=== PATIENT | male | born 1940 | race Caucasian/White ===

== ENCOUNTER 2023-08-10 08:30 | Inpatient (IN) | payer OTHER, SELFPAY ==
[2023-08-08] VITALS (13 sets, daily range): BP systolic 139–182; BP diastolic 65–93; PULSE 75–85; BMI 28.4
[2023-08-08 08:53] LABS: % Basophils 0.9 % (0-2); % Eosinophils 3.7 % (0-6); % Immature Granulocytes 0.8 % (0-0.5); % Lymphocytes 17.9 % (20.5-51.1); % Monocytes 8.9 % (1.7-9.3); % Neutrophils 67.8 % (42.2-75.2); Absolute Basophils 0.1 10^3/uL (0-0.2); Absolute Eosinophils 0.4 10^3/uL (0-0.7); Absolute Immature Granulocytes 0.1 10^3/uL (0-0.05); Absolute Lymphocytes 1.8 10^3/uL (1.2-3.4); Absolute Monocytes 0.9 10^3/uL (0.1-0.6); Absolute Neutrophils 6.7 10^3/uL (1.4-6.5); Hematocrit 41.3 % (39.0-52.0); Hemoglobin 14.1 g/dL (13.0-18.0); Mean Corp Hgb Conc. 34.1 g/dL (33.0-37.0); Mean Corpuscular Hgb 29.8 pg (27.0-31.0); Mean Corpuscular Volume 87.3 fL (80.0-94.0); Mean Platelet Volume 11.1 fL (7.4-10.4); Nucleated Red Blood Cells % 0 % (-); Platelet Count 209 10^3/uL (130-400); Red Blood Cell Count 4.73 10^6/uL (4.70-6.10); Red Cell Dist. Width 12.8 % (11.5-14.5); White Blood Cell Count 9.9 10^3/uL (4.8-10.8)
[2023-08-08 09:01] LABS: PT 15.1 Sec (11.4-14.6)
--- NOTE | 2023-08-08 09:05 | ED.GENMED ---
History of Present Illness
General
Chief Complaint: Dizziness
Source: patient
Exam Limitations: none
Time Seen by Provider: 08/08/23 09:04
Nursing documentation reviewed up to this point in time: agreed with
Travel History
Have you had any contact with someone who has COVID-19?: No
Do you have any symptoms of coronavirus? Fever > 100 degrees, chills, cough, shortness of breath, sore throat, loss of taste or smell, muscle aches, or headache?: No
History of Present Illness
History of Present Illness:
Patient with history of hypertension, hypercholesterolemia, diabetes, and dementia, presents to ED secondary to inability to move left arm and leg. Per , who sleeps in a separate room, when she came downstairs, she found the patient sitting in
a chair. However, patient appeared to be 'limp' on his left side. When she tried to stand up, to bring him to ED, patient was unable to stand up due to weakness. 911 was called at that time. Upon arrival, patient has no complaints and states
that he can open and close his left hand, as well as raise his left arm, which he could not do this morning. Patient reports falling down the steps as he was coming down, but denies any injuries from the fall. Denies headache. Denies blurred
vision. Denies dizziness. Denies difficulty with speech. At baseline, patient is independent and ambulates without assistance. Denies previous history of similar symptoms. Denies recent illness. Denies recent change in medications or diet.
Past History
Past History
ED Past Medical History: Asthma, HTN, Hypercholesterolemia, NIDDM and Other (Dementia)
ED Past Surgical History: Cholecystectomy and Orthopedic (Right shoulder surgery)
Social History
Tobacco: Former smoker
Alcohol: Occasional
Personal:
Living: with family
Employment: Retired
Review of Systems
Review of Systems
Allergies reviewed?: Yes
All Other Systems: ROS reviewed and negative except as documented in HPI and ROS
Constitutional: Reports no symptoms
EENT: Reports no symptoms
Respiratory: Reports no symptoms
Cardiac: Reports no symptoms
ABD/GI: Reports no symptoms
: Reports no symptoms
Musculoskeletal: Reports no symptoms
Skin: Reports no symptoms
Neurological: Reports weakness; Denies headache or numbness
Phy Exam
Physical Exam
Physical Exam:
Physical Exam
General: no apparent distress, not acutely ill. afebrile
Head: nc/at. eomi
Neck: supple. no meningeal signs.
Heart: s1/s2 regular rate and rhythm, no murmur. equal radial pulses.
Lungs: no acute respiratory distress. clear bilaterally
Abdomen: normal bowel sounds. not tender.
Neuro: alert and oriented x 2. no focal neurological deficits. normal speech.
Skin: no rash
Psychiatric: well kept. interactive and cooperative
Extremities: no edema. no calf tenderness.
Course
Orders/Labs/Results
Orders:
Orders
08/08/23 08:36
EKG [Electrocardiogram (*1)] Urgent
Reason for Study: Vertigo / Dizzy
CT Head W/o Iv Contrast Urgent
Comment:
Reason For Exam: dizziness
EKG- Treatment ONCE
08/08/23 08:42
Complete Blood Count/With Diff Urgent
Comprehensive Metabolic Panel Urgent
Glycohemoglobin (HgbA1c) Urgent
Prothrombin Time Urgent
Troponin I Urgent
08/08/23 09:26
Orthostatic VS- Treatment ONCE
08/08/23 09:33
0.9% Sodium Chloride 500 ml [Nss] 500 ml IV BOLUS
08/08/23 09:47
Aspirin 325 mg PO NOW STA
Clopidogrel Bisulfate [Plavix] 300 mg PO NOW STA
08/08/23 11:32
Admit/Transfer Patient As Directed
Co-Sign Provider:
Level of Care: Observation services
Assign to:: Telemetry
Physician / Group: hosp
Diagnosis: TIA/CVA
Reason for Telemetry: CVA/TIA
Date to Stop Telemetry: 08/11/23
Time to Stop Telemetry: 11:00
08/08/23 11:34
Code Status As Directed
Resuscitation Status: Do not resuscitate
Reached after discussion with pt or family/Healthcare POA: Yes
08/08/23 11:35
DNR Bracelet Application ONCE
08/08/23 13:01
Acetaminophen [Tylenol/Feverall] 650 mg RECTAL Q4HPRN PRN
Acetaminophen [Tylenol] 650 mg PO Q4HPRN PRN
Acetaminophen [Tylenol] 650 mg PO Q4HPRN PRN
08/08/23 13:01
Case Management Consult ONCE
Case Management Consult: Discharge Planning
Comment: stroke/tia
DIETARY CONSULT Routine
Reason for Consult: stroke/TIA
NEUROLOGY CONSULT Urgent
Consulting Provider: Sharlene Gutierrez
Was physician already notified: Yes
Spot Cleaner Urgent
Activity As Directed
Activity Level: With Assistance
NIH Stroke Scale As Directed
Directions: Per protocol
Comment: every shift and with any change in condition or mental status
Neurological Checks As Directed
Frequency: q4h
Additional Instructions:: q4h x 24h upon admission to the floor, then qshift & with any change in condition
and mental status
Patient Education As Directed
Type: Stroke education packet
Comment: provide to patient and family
Pneumatic Compression Sleeves As Directed
Type: Knee high
Swallow Screening CVA/TIA ONLY As Directed
Comment: NPO until swallowing screening completed
If patient FAILS swallow screening:: NPO, Speech Therapy consult, Aspiration Precautions
If patient PASSES swallow screening, diet:: Cholesterol Lowering
Above diet order entered?: Yes- passed screening
Vital Signs As Directed
Frequency: Per unit guidelines
Ot Eval And Treat Routine
Speech Therapy Eval & Treat Routine
DX Deep Vein Thrombosis Video Routine
08/08/23 18:00
Enoxaparin Sodium [Lovenox] 40 mg SC QPM
08/08/23 22:00
Atorvastatin [Lipitor] 40 mg PO HS
08/09/23 05:37
Basic Metabolic Panel IN AM
Cardiovascular Evaluation IN AM
Complete Blood Count/No Diff IN AM
08/09/23 08:00
Amlodipine [Norvasc] 5 mg PO DAILY
Aspirin Low Dose EC [Aspir Low (Enteric Coated)] 81 mg PO DAILY
Clopidogrel Bisulfate [Plavix] 75 mg PO DAILY
Glimepiride [Amaryl] 1 mg PO DAILY
Losartan [Cozaar] 100 mg PO DAILY
Meloxicam [Mobic] 15 mg PO DAILY
08/11/23 11:00
DC Protocol for Telemetry ONCE
09/07/23 08:00
Cyanocobalamin 1,000 mcg IM MONTHLY
Abnormal Lab Results
08/08/23
08:42
MPV 11.1 H fL
(7.4-10.4)
Abs Immat Gran (auto) 0.1 H 10^3/uL
(0-0.05)
Absolute Neuts (auto) 6.7 H 10^3/uL
(1.4-6.5)
Absolute Monos (auto) 0.9 H 10^3/uL
(0.1-0.6)
Immature Gran % 0.8 H %
(0-0.5)
Lymphocytes % 17.9 L %
(20.5-51.1)
PT 15.1 H Sec
(11.4-14.6)
BUN 27 H mg/dl
(9-20)
Glucose 138 H mg/dl
(70-99)
08/08/23 08:42
08/08/23 08:42
Vital Signs
Initial and Last Documented VS:
Initial Vital Signs
Pulse Resp
81 24
08/08/23 08:38 08/08/23 08:38
Last Documented Vital Signs
Temp Pulse Resp BP Pulse Ox
97.8 F 105 19 170/122 96
08/09/23 03:55 08/09/23 03:55 08/09/23 03:55 08/09/23 03:55 08/09/23 03:55
MDM/Problems Addressed
MDM/Problems Addressed:
CT head: NAD.
Discussed with (neurology) who recommends further evaluation and treatment, for potential TIA vs CVA. Recommends starting asa/plavix, along with additional studies, ie. MRI
*EKG
Interpreted by ED Provider?: Yes
EKG Intrepretation Date: 08/08/23
Interpretation: normal
Heart Rate: 78
Rate: normal
Rhythm: sinus
[place]: normal axis
Interval: normal interval
*Critical Care Note
Total Time (30-74mins, 75-104mins- exclusive of procedures): Not Applicable
ED Attending Note
-
Portions of this chart may have been created with voice recognition software.� Occasional wrong word or��sound alike� substitutions may have occurred due to the inherent limitations of voice recognition software.
Discharge Plan
Departure
Patient Disposition: Admit
Date of Disposition: 08/08/23
Time of Disposition: 09:46
Admit to: Telemetry
Presentation/result/management discussed w/ accepting MD/DO: Hospitalist
Discharge Problem:
Brain TIA, Dementia
Interventions
Interventions:
*Risk Screen - Suicide Last Done: 08/08/23 12:41
*General Assessment Last Done: 08/08/23 12:41
*Neglect/Abuse Screening Last Done: 08/08/23 12:41
ED- Fall Risk Assessment Last Done: 08/08/23 12:46
*ED COVID-19 Vaccine History Last Done: 08/08/23 12:41
*Nursing Disposition Last Done: 08/08/23 12:53
ED- Neurological Assessment Last Done: 08/08/23 12:45
ED- Cardiac Assessment Last Done: 08/08/23 12:53
ED Swallowing Screen Last Done: 08/08/23 12:45
Discharge Date and Time
Discharge Date/Time: 08/08/23 13:00
[2023-08-08 09:10] LABS: ALT (SGPT) 14 U/L (0-50); AST (SGOT) 20 U/L (17-59); Albumin 4.2 g/dl (3.5-5.0); Alkaline Phosphatase 78 U/L (38-126); Blood Urea Nitrogen 27 mg/dl (9-20); Calcium 9.9 mg/dl (8.4-10.2); Carbon Dioxide 23 mmol/L (22-30); Chloride 107 mmol/L (98-107); Glucose 138 mg/dl (70-99); Sodium 136 mmol/L (135-145); Total Bilirubin 0.4 mg/dl (0.2-1.3); eGFR 54.51
[2023-08-08] MEDS: NSS 500 IV (09:36)
[2023-08-08 09:42] LABS: Troponin I < 0.012 ng/ml
[2023-08-08] MEDS: PLAVIX 300 MG PO (10:23)
[2023-08-08] MEDS: ASPIRIN 325 MG PO (10:23)
--- NOTE | 2023-08-08 11:43 | HPS.HSE ---
Family Physician
-
Family Physician: Elijah Zavala
Chief Complaint
-
Left-sided weakness inability to ambulate
History of Present Illness
Patient with history of hypertension, hypercholesterolemia, diabetes, and dementia, presents to ED secondary to inability to move left arm and leg. Per , who sleeps in a separate room, when she came downstairs, she found the patient sitting in
a chair. However, patient appeared to be 'limp' on his left side. When she tried to stand up, to bring him to ED, patient was unable to stand up due to weakness. 911 was called at that time. Upon arrival, patient has no complaints and states
that he can open and close his left hand, as well as raise his left arm, which he could not do this morning.
Patient reports falling down the steps as he was coming down, but denies any injuries from the fall. Denies headache. Denies blurred vision. Denies dizziness. Denies difficulty with speech. At baseline, patient is independent and ambulates
without assistance. Denies previous history of similar symptoms. Denies recent illness. Denies recent change in medications or diet. He is not at all clear whether he in fact did not fall down stairs as his disputes this as there is no
evidence of that at the home. He does have a history of underlying dementia for years that is been slowly worsening he is not on medication for that. On presentation there is no signs of trauma and CT scan did not show any signs of bleed. Of note
the patient and he is a diabetic checked his blood sugar at home at the time of amp shortly before paramedics arrived and blood sugar was 132.
Medical History
Past Medical History
Past Medical History: Reports Asthma, Dementia, HTN, Hypercholesterolemia and NIDDM
Additional Past Medical History:
Progressing dementia
Past Surgical History: Reports None
Social History
Unable to obtain full social history at this time due to: Dementia
Tobacco: Former Smoker
Alcohol: Occasional
Drug: None
Personal:
Living: With Family
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
Family History
Family History: Not pertinent
Allergies / Home Medications
Allergies reflects when Allergies were last updated in [facility].
Home Medications with original date entered in [facility]
Allergy/Medication List:
Allergies
Allergy/AdvReac Type Severity Reaction Status Date / Time
seasonal allergies Allergy nasal Uncoded 03/27/23 04:37
symtpoms
Home Medications
aspirin 81 mg tablet,delayed release 81 mg PO DAILY 10/22/09
atorvastatin 40 mg tablet 40 mg PO HS 10/22/09
glimepiride 1 mg tablet 1 mg PO DAILY 07/04/22
losartan 50 mg tablet 100 mg PO DAILY 07/04/22
metformin 500 mg tablet,extended release 24 hr 2,000 mg PO DAILY 07/04/22
amlodipine 5 mg tablet 5 mg PO DAILY #30 tabs 07/08/22
acetaminophen 325 mg tablet (Tylenol) 650 mg PO Q4HPRN PRN mild pain 07/09/22
cyanocobalamin (vitamin B-12) 1,000 mcg/mL injection solution 1,000 mcg IM MONTHLY 07/09/22
meloxicam 15 mg tablet 15 mg PO DAILY 08/08/23
Review of Systems
-
Unable to obtain full review of systems at this time due to: Dementia (Has had short-term memory loss for some time presently seems to be at his baseline according to his spouse)
EENT: Reports No Symptoms
Respiratory: Reports No Symptoms
Cardiac: Reports No Symptoms
Abdomen/GI: Reports No Symptoms
Musculoskeletal: Reports No Symptoms
Skin: Reports No Symptoms
Neurological: Reports Weakness (Had describes short-term flaccidity involving his left side no speech affectation was ever noted.)
Psych: Reports Calm
Physical Exam
Vital Signs
Vital Signs
Temp Pulse Resp BP Pulse Ox
97.7 F 78 21 139/83 95
08/08/23 08:40 08/08/23 09:45 08/08/23 09:45 08/08/23 09:29 08/08/23 09:45
Physical Exam
General: Well Developed
Respiratory: Clear
Cardiac: S1/S2
GI: Soft
Rectal: Brown
Musculoskeletal: No Cyanosis, No Edema and Normal Gait & Station (Did not test gait)
Skin: Warm
Neuro: Awake, Alert, Oriented (He has limited orientation in regards to time elements of this morning and events leading up to his arrival here), No Motor Deficits and Nonfocal/grossly intact
Hematologic/Lymphatic: Lymphadenopathy
Psych: Calm
Laboratory Results
-
08/08/23 08:42
08/08/23 08:42
Laboratory Results
PT 15.1 Sec (11.4-14.6) H 08/08/23 08:42
INR 1.20 08/08/23 08:42
Total Bilirubin 0.4 mg/dl (0.2-1.3) 08/08/23 08:42
AST 20 U/L (17-59) 08/08/23 08:42
ALT 14 U/L (0-50) 08/08/23 08:42
Alkaline Phosphatase 78 U/L (38-126) 08/08/23 08:42
Troponin I < 0.012 ng/ml 08/08/23 08:42
Data Reviewed
-
Critical Care Time (in minutes): 56
CT Scan: Report Reviewed by me (There was significant white matter ischemic disease and atrophy noted), Discussed with Physician, Discussed with Patient and Discussed with Family
Lab Data: Labs Reviewed by me
Impression/Plan
-
IMPRESSION:
Patient with history of hypertension, hypercholesterolemia, diabetes, and dementia, presents to ED secondary to inability to move left arm and leg. Per , who sleeps in a separate room, when she came downstairs, she found the patient sitting in
a chair. However, patient appeared to be 'limp' on his left side. When she tried to stand up, to bring him to ED, patient was unable to stand up due to weakness. 911 was called at that time. Upon arrival, patient has no complaints and states
that he can open and close his left hand, as well as raise his left arm, which he could not do this morning.
Patient reports falling down the steps as he was coming down, but denies any injuries from the fall. Denies headache. Denies blurred vision. Denies dizziness. Denies difficulty with speech. At baseline, patient is independent and ambulates
without assistance. Denies previous history of similar symptoms. Denies recent illness. Denies recent change in medications or diet. He is not at all clear whether he in fact did not fall down stairs as his disputes this as there is no
evidence of that at the home. He does have a history of underlying dementia for years that is been slowly worsening he is not on medication for that. On presentation there is no signs of trauma and CT scan did not show any signs of bleed. Of note
the patient and he is a diabetic checked his blood sugar at home at the time of amp shortly before paramedics arrived and blood sugar was 132.
CVA/TIA
-Symptoms and signs transient no more than 1 to 1-1/2 hours
-Manifested as left side weakness and could not ambulate or stand upright/no apparent speech affect
-No present residual focal deficits on my exam
-CT scan of the brain unremarkable except for white matter ischemic disease known history of dementia
-Received dual antiplatelet therapy with clopidogrel 300/aspirin 325
-Continue on dual antiplatelet therapy
-Await MRI of the brain
-Non-tPA stroke protocol/did not meet criteria for thrombolysis due to 0 NIH score
Neurology consultation
Type 2 diabetes mellitus
-Continue glimepiride
-Hold metformin
-Sliding scale coverage low-dose
Essential hypertension by history
-Continue amlodipine, losartan
-Avoid hypotension in the next 24 hours
Dementia(vascular)
-That has been waxing and waning for years but slowly progressing
-Cognition according to spouse is presently at baseline
Placed on observation status
DVT prophylaxis with Lovenox and SCDs
DNR/DNI/substantiated at bedside by spouse
[2023-08-08] MEDS: LOVENOX 40 MG SC (17:13)
[2023-08-08] MEDS: LIPITOR 40 MG PO (22:01)
[2023-08-09] MEDS: APRESOLINE 5 MG IV (00:54)
[2023-08-09 03:55] VITALS: BP 170/122
[2023-08-09 05:10] VITALS: BMI 27.6
[2023-08-09 06:20] LABS: Hematocrit 40.7 % (39.0-52.0); Hemoglobin 14.3 g/dL (13.0-18.0); Mean Corp Hgb Conc. 35.1 g/dL (33.0-37.0); Mean Corpuscular Volume 85.5 fL (80.0-94.0); Mean Platelet Volume 11.7 fL (7.4-10.4); Platelet Count 223 10^3/uL (130-400); Red Blood Cell Count 4.76 10^6/uL (4.70-6.10); Red Cell Dist. Width 12.6 % (11.5-14.5); White Blood Cell Count 10.7 10^3/uL (4.8-10.8)
[2023-08-09 06:44] LABS: Blood Urea Nitrogen 21 mg/dl (9-20); Calcium 10.1 mg/dl (8.4-10.2); Carbon Dioxide 19 mmol/L (22-30); Chloride 106 mmol/L (98-107); Estimated Creatinine Clearance 56 ml/min; Glucose 128 mg/dl (70-99); HDL Cholesterol 33 mg/dl; LDL Cholesterol, Calculated 140 mg/dl; Potassium 4.4 mmol/L (3.5-5.1); Sodium 134 mmol/L (135-145); Total Cholesterol 216 mg/dl (50-199); Triglyceride 216 mg/dl (10-149); Very Low Density Lipoprotein 43 mg/dl (0-30); eGFR > 60.00
[2023-08-09 07:00] VITALS: BP 158/95
--- NOTE | 2023-08-09 09:20 | W.PN.HOSP.TC ---
Today's Communication/Plan
-
Continue neurochecks
Dual antiplatelet therapy
Obtain 2D echocardiogram
PT/OT May need rehab
Assessment / Plan
Assessment / Plan
Patient with history of hypertension, hypercholesterolemia, diabetes, and dementia, presents to ED secondary to inability to move left arm and leg. Per , who sleeps in a separate room, when she came downstairs, she found the patient sitting in
a chair. However, patient appeared to be 'limp' on his left side. When she tried to stand up, to bring him to ED, patient was unable to stand up due to weakness. 911 was called at that time. Upon arrival, patient has no complaints and states
that he can open and close his left hand, as well as raise his left arm, which he could not do this morning.
Patient reports falling down the steps as he was coming down, but denies any injuries from the fall. Denies headache. Denies blurred vision. Denies dizziness. Denies difficulty with speech. At baseline, patient is independent and ambulates
without assistance. Denies previous history of similar symptoms. Denies recent illness. Denies recent change in medications or diet. He is not at all clear whether he in fact did not fall down stairs as his disputes this as there is no
evidence of that at the home. He does have a history of underlying dementia for years that is been slowly worsening he is not on medication for that. On presentation there is no signs of trauma and CT scan did not show any signs of bleed. Of note
the patient and he is a diabetic checked his blood sugar at home at the time of amp shortly before paramedics arrived and blood sugar was 132.
CVA/TIA
-Symptoms and signs transient no more than 1 to 1-1/2 hours
-Manifested as left side weakness and could not ambulate or stand upright/no apparent speech affect
-No present residual focal deficits on my exam
-CT scan of the brain unremarkable except for white matter ischemic disease known history of dementia
-Received dual antiplatelet therapy with clopidogrel 300/aspirin 325
-Continue on dual antiplatelet therapy
-Await MRI of the brain/which initial attempt was unable to be performed due to patient agitation and this is from his baseline dementia
-Was sedated with the lorazepam and MRI in keeping with a right posterior capsule CVA ischemic/
-Non-tPA stroke protocol/did not meet criteria for thrombolysis due to 0 NIH score
Neurology consultation/left arm and left leg drift equals NIH score of 1
-Will need to undergo 2D echocardiogram to further assess
-Will change to inpatient status need for PT/OT
Type 2 diabetes mellitus
-Continue glimepiride
-Hold metformin
-Sliding scale coverage low-dose
Essential hypertension by history
-Continue amlodipine, losartan
-Avoid hypotension in the next 24 hours
Dementia(vascular)
-That has been waxing and waning for years but slowly progressing
-Cognition according to spouse is presently at baseline
Placed on observation status
DVT prophylaxis with Lovenox and SCDs
DNR/DNI/substantiated at bedside by spouse
Anticipated Discharge: Within 24 hours
Subjective/Interval History
-
Date of Service: August 09, 2023
Was agitated and acting out throughout the night and was unable to have MRI performed this morning due to agitation.
Objective Data
-
Labs:
Laboratory Results
08/09/23
05:37
WBC 10.7
Hgb 14.3
Hct 40.7
Plt Count 223
Sodium 134 L
Potassium 4.4
Chloride 106
Carbon Dioxide 19 L
BUN 21 H
Creatinine 1.1
Glucose 128 H
Calcium 10.1
Vital Signs:
Vital Signs
Temp Pulse Resp BP Pulse Ox
97.8 F 96 19 158/95 95
08/09/23 07:00 08/09/23 07:00 08/09/23 07:00 08/09/23 07:00 08/09/23 07:00
I&O
08/08/23 08/09/23 08/10/23
06:59 06:59 06:59
Intake Total 1020 / 1020
Output Total 5 / 5
Balance -5 / -5
Review of Systems
-
Unable to obtain full review of systems at this time due to: Dementia
History Source: Patient and Family
Physical Exam
-
General: No Apparent Distress
Respiratory: Clear to Auscultation
Cardiac: Regular Rhythm
GI: Soft
Neuro: Awake, No Motor Deficits, Nonfocal/Grossly Intact and Central Nerve's Intact; Negative Oriented (Disoriented to time place), No Sensory Deficits or Slurred Speech
Psych: Confused, Agitated, Anxious and Apparent Dementia; Negative Intact Judgement/Insight
Data Reviewed
-
Total Time Spent with Patient (in minutes): 56
Labs: Labs Reviewed by me
[2023-08-09 10:13] LABS: Glycohemoglobin (HgbA1c) 6.4 % (4.0-5.6)
[2023-08-09] MEDS: NORVASC 5 MG PO (10:19)
[2023-08-09] MEDS: COZAAR 100 MG PO (10:19)
[2023-08-09] MEDS: ASPIR LOW (ENTERIC COATED) 81 MG PO (10:19)
[2023-08-09] MEDS: AMARYL 1 MG PO (10:19)
[2023-08-09] MEDS: PLAVIX 75 MG PO (10:19)
[2023-08-09 11:00] VITALS: BP 130/81
--- NOTE | 2023-08-09 11:16 | CON.NEURO4 ---
Consultation - Neurology 4
-
CONSULTING PHYSICIAN: Brenda
REFERRING PHYSICIAN: Tyrell
DICTATED BY: Brenda
DATE/TIME OF REQUEST: 08/08/23
DATE/TIME OF CONSULTATION:08/09/23 at 1015; evaluation delayed as patient was at MRI
Reason for Consultation: stroke
History of Present Illness:
83-year-old male with several vascular risk factors including hypertension, hypercholesterolemia, diabetes as well as a history of dementia brought into the ED yesterday after developing left arm and leg weakness. Unclear time of onset. His
sleeps in a different room. When she came downstairs yesterday morning she found the patient sitting in a chair but he was unable to move his left side. He was unable to stand up due to his degree of weakness. She called 911 and he was brought to
the ED. His symptoms resolved by the time he came to the ED and his NIH stroke scale was 0. No prior history of stroke or similar symptoms. Today on evaluation he does have some left arm drift and some weakness in his left hand. Unclear when the
symptoms recurred. He was loaded with dual antiplatelet therapy in the ED.
Past Medical History: Asthma, HTN, Hypercholesterolemia, NIDDM, Dementia
Past Surgical History: Cholecystectomy, Right shoulder surgery
Social History
Tobacco: Former smoker
Alcohol: Occasional
Personal:
Living: with family
Employment: Retired
No clear family history of stroke
Allergies
seasonal allergies Allergy (Uncoded 03/27/23 04:37)
nasal symtpoms
Home Medications
�Medication �Instructions �Recorded
aspirin 81 mg tablet,delayed 81 mg PO DAILY Blood Clot 10/22/09
release Prevention/Tx
atorvastatin 40 mg tablet 40 mg PO HS High Cholesterol 10/22/09
glimepiride 1 mg tablet 1 mg PO DAILY Diabetes 07/04/22
losartan 50 mg tablet 100 mg PO DAILY Blood Pressure 07/04/22
metformin 500 mg tablet,extended 2,000 mg PO DAILY Diabetes 07/04/22
release 24 hr
amlodipine 5 mg tablet 5 mg PO DAILY #30 tabs 07/08/22
acetaminophen 325 mg tablet 650 mg PO Q4HPRN PRN mild pain 07/09/22
(Tylenol)
cyanocobalamin (vitamin B-12) 1,000 mcg IM MONTHLY Supplement 07/09/22
1,000 mcg/mL injection solution
meloxicam 15 mg tablet 15 mg PO DAILY Pain 08/08/23
Review of Symptoms:
Patient denies any fever, headache, chest pain, shortness of breath, GI or symptoms.
�Per the HPI.�All systems are reviewed negative except above.
Vital Signs
Temp Pulse Resp BP Pulse Ox
97.8 F 96 19 158/95 95
08/09/23 07:00 08/09/23 07:00 08/09/23 07:00 08/09/23 07:00 08/09/23 07:00
Lab Results
08/09/23 05:37
08/09/23 05:37
PT 15.1 Sec (11.4-14.6) H 08/08/23 08:42
INR 1.20 08/08/23 08:42
Sodium 134 mmol/L (135-145) L 08/09/23 05:37
Potassium 4.4 mmol/L (3.5-5.1) 08/09/23 05:37
BUN 21 mg/dl (9-20) H 08/09/23 05:37
Glucose 128 mg/dl (70-99) H 08/09/23 05:37
Calcium 10.1 mg/dl (8.4-10.2) 08/09/23 05:37
LDL Cholesterol, Calc 140 mg/dl 08/09/23 05:37
Physical Exam:
The patient is afebrile, heart sounds S1 and S2 are regular, and chest is clear to auscultation bilaterally.
NIH Stroke Scale:
I performed the NIH stroke scale on the patient on 08/09/23 at 1015. The patient scored 1 points on the NIH stroke scale assessment, which were assigned as follows: 1 for LUE drift.
Neurologic Examination:
The patient is awake, alert and oriented x 3. He is able to follow commands and answer questions appropriately. There is no aphasia or dysarthria. On cranial nerve assessment, pupils are 3 mm bilateral, round and reactive to light and
accommodation. Visual argueta are full. Extraocular movements are intact. Facial sensations are intact and bilaterally symmetrical, there is no facial asymmetry. He is extremely hard of hearing and his hearing aides are . Tongue palate and uvula
are midline. Sternocleidomastoid strengths are full bilaterally. Motor strengths are full except L hand deputy court clerk 4/5; +LUE drift. No involuntary movement noted. Deep tendon reflexes are 1+ bilateral upper and lower extremities and Babinski is absent
bilaterally. Sensations of pain, touch, temperature and vibration are intact and bilaterally symmetrical. There was no extinction noted on double simultaneous stimulation. Coordination is intact by finger to nose bilaterally.
Neuro Imaging: HCT:
No acute intracranial abnormality noted.
Chronic microvascular white matter ischemic disease. Atrophy. Chronic sinusitis.
Impression:
RUFINA KIRK is a 83 year old M who has presented to the hospital after an episode of L sided weakness (arm and leg) that resolved. Today he has some LUE drift and L hand deputy court clerk weakness--unclear when this recurred. MRI brain concerning for R
posterior limb of IC acute ischemic stroke on my read, await official read from radiology. This is likely atherothrombotic in etiology.
Patient has the following risk factors for their symptoms: age, htn, hld, dm
IV Tenecteplase/IAT candidacy: not a candidate as his symptoms had resolved; recurred sometime since admission--would consider them nondisabling so not a candidate for intervention
Recommendations:
-check MRI brain without contrast to evaluate for stroke (official read pending)
-MRA head/neck
-BP goal is normotension.
-loaded with ASA, Plavix, continue DAPT x 21 days, then d/c Plavix, continue ASA only indefinitely
- Check hemoglobin A1C. Goal is normoglycemia.
- Increase atorvastatin to 80 mgby mouth daily at bedtime. LDL is 140 on atorvastatin 40mg as outpatient. Goal LDL after stroke is <70.
- Check an echocardiogram.
-PT/OT/ST evaluations
- DVT prophylaxis
-continue neurochecks
Discussed patient care with: patient, ER, nursing, Dr. Santillan
--- NOTE | 2023-08-09 11:54 | PTOTSP ---
SPEECH THERAPY SWALLOW EVALUATION:
Patient presents with grossly functional oral-pharyngeal swallow at this time. No signs of aspiration are observed at this time. However, patient remains at risk for aspiration given acute CVA. Recommend Regular texture diet, thin liquids.
Medications whole with liquid as tolerated. General aspiration precautions including upright positioning, small sips/bites, slow rate of intake. Speech therapy to follow, assess diet tolerance and modify as appropriate, provide continued education
regarding aspiration risks/precautions, and evaluate speech/language/cognitive communication skills in full evaluation to follow.
RECOMMEND:
1) Regular texture diet, thin liquids
2) Medications whole with liquid as tolerated
3) General aspiration precautions including upright positioning, small sips/bites, slow rate of intake.
4) Speech therapy to follow, assess diet tolerance and modify as appropriate, provide continued education regarding aspiration risks/precautions, and evaluate speech/language/cognitive communication skills in full evaluation to follow.
[2023-08-09 15:00] VITALS: BP 114/68
[2023-08-09] MEDS: LOVENOX 40 MG SC (16:48)
[2023-08-09] MEDS: LIPITOR 80 MG PO (21:28)
[2023-08-09] MEDS: TYLENOL 650 MG PO (21:44)
[2023-08-09 23:07] VITALS: BP 155/90
[2023-08-10] VITALS (7 sets, daily range): BP systolic 113–161; BP diastolic 63–90; PULSE 89; BMI 27.2
--- NOTE | 2023-08-10 08:17 | W.PN.HOSP.TC ---
Today's Communication/Plan
-
Continue DAPT, High-Intensity Statin
Appreciate neurology
PT/OT
[facility]/Physiatry Evaluation pending
Assessment / Plan
Assessment / Plan
Physical Exam
General: Well Developed
Respiratory: Clear
Cardiac: S1/S2
GI: Soft. Nontender. Positive bowel sounds.
Musculoskeletal: No Cyanosis, No Edema
Skin: Warm
Neuro: Awake, Alert, Oriented (He has limited orientation in regards to time elements of this morning and events leading up to his arrival here), 3/5 strength of his left upper extremity, 4/5 strength of his left lower extremity
Hematologic/Lymphatic: Lymphadenopathy
Psych: Calm
Assessment/Plan
Patient with history of hypertension, hypercholesterolemia, diabetes, and dementia, presented to the emergency department secondary to inability to move left arm and left leg. Per , who sleeps in a separate room, when she came downstairs, she
found the patient sitting in a chair. However, patient appeared to be 'limp' on his left side. When she tried to stand up, to bring him to ED, patient was unable to stand up due to weakness. 911 was called at that time. Upon arrival, patient had
no complaints and stated that he could open and close his left hand, as well as raise his left arm, which he could not earlier in the day, in the morning.
Patient reported falling down the steps as he was coming down, but denied any injuries from the fall. Denied headache. Denied blurred vision. Denied dizziness. Denied difficulty with speech. At baseline, patient is independent and ambulates
without assistance. Denied previous history of similar symptoms. Denied recent illness. Denied recent change in medications or diet. He is not at all clear whether he in fact did not fall down stairs as his disputes this as there is no
evidence of that at the home. He does have a history of underlying dementia for years that is been slowly worsening he is not on medication for that. On presentation, there were no signs of trauma and CT scan did not show any signs of bleed. Of
note the patient and he is a diabetic checked his blood sugar at home at the time of amp shortly before paramedics arrived and blood sugar was 132.
Presented to the hospital with left-sided arm greater than leg weakness
CVA/TIA
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
-Symptoms and signs transient no more than 1 to 1-1/2 hours
-Manifested as left side weakness and could not ambulate or stand upright/no apparent speech affect
-CT scan of the brain unremarkable except for white matter ischemic disease known history of dementia
-Received dual antiplatelet therapy with clopidogrel 300/aspirin 325
-Continue on dual antiplatelet therapy for 21 days and then transition to clopidogrel monotherapy and stop aspirin
-Home Atorvastatin increased from 40 mg to 80 mg daily (goal LDL moving forward will be less than 80)
-Non-tPA stroke protocol/did not meet criteria for thrombolysis with NIH score of 0
-Await echocardiogram
-Neurology consulted, recommendations appreciated
-PT/OT
-Possible [facility] -- physiatry consult has been placed by Neurology
Type 2 diabetes mellitus
-Continue glimepiride
-Hold metformin
-Sliding scale coverage low-dose
Essential hypertension by history
-Continue amlodipine, losartan
Dementia(vascular)
-That has been waxing and waning for years but slowly progressing
-Cognition according to spouse is presently at baseline
Placed on observation status
DVT prophylaxis with Lovenox and SCDs
DNR/DNI/was substantiated at bedside by spouse
Anticipated Discharge: 24 - 48 hours
Subjective/Interval History
-
Date of Service: August 10, 2023
Patient was seen and examined. He was eating and drinking from his breakfast and denied any new symptoms or complaints.
Objective Data
-
Vital Signs:
Vital Signs
Temp Pulse Resp BP Pulse Ox
97.9 F 94 18 128/68 95
08/10/23 03:25 08/10/23 03:25 08/10/23 03:25 08/10/23 03:25 08/10/23 03:25
I&O
08/09/23 08/10/23 08/11/23
06:59 06:59 06:59
Intake Total 1020 / 1020 1320 / 1320
Output Total 1025 / 1025 400 / 400
Balance -5 / -5 920 / 920
--- NOTE | 2023-08-10 08:40 | W.PN.NEURO.1 ---
Addendum entered and electronically signed by Jose Manuel Low MD 08/10/23 09:57:
I saw and evaluated the patient I reviewed the note by Judi Woodson agree with the findings the following comments:
83-year-old male with a past medical history of hypertension hyperlipidemia and diabetes on no insulin presented to hospital with left-sided arm greater than leg weakness. Was outside the window for thrombolytics and had NIH stroke scale of 0 on
admission. Has had some worsening left arm and wrist weakness compared to the degree of weakness on admission.
MRI brain shows clear capone radiata and basal ganglia infarction
MRA of the head and neck does not show any significant carotid or vertebral artery or intracranial stenosis or occlusions and no aneurysms or vessel malformations.
LDL is 140 hemoglobin A1c is 6.4
Treated for chronic hypertension with amlodipine and losartan
Very likely the cause of stroke is cerebral small vessel disease due to hypertension hyperlipidemia and diabetes. He has characteristic location and size along with syndrome for lacunar stroke. No evidence for an atheroembolic cause of stroke and
cardioembolic is felt less likely although not out of the question.
Modifiable risk factors will be improving hyperlipidemia, continue to keep diabetes mellitus and check, continuing to treat chronic hypertension. Diet and physical activity as additional methods of secondary stroke prevention.
Recommendations
-Check transthoracic echocardiogram
-Placed on DAPT therapy with aspirin and clopidogrel for 21 days and then transition to clopidogrel monotherapy and stop aspirin
-Continue increased dose of atorvastatin 80 mg daily goal LDL moving forward will be less than 80
-Physical Occupational Therapy evaluations encouraged potential acute rehabilitation
-Would consult physical medicine rehabilitation for rehabilitation candidacy
-Continue on cardiac telemetry while in the hospital
-Neurologic checks and NIH stroke scales
Will follow peripherally call with questions and concerns
Original Note:
Documented by User: Judi Rey NP 08/10/23 09:38
Today's Communication / Plan
-
.
Neuro Assessment/Plan
Assessment
83-year-old male with several vascular risk factors including HTN, HLD, NIDDM, as well as a history of dementia brought into the ED on 08/08/23 after developing left arm and leg weakness. Unclear time of onset. NIHSS was 0 on arrival to the ER and
he was not a candidate for TNK/IAT. He was loaded with DAPT in the ER. On 08/09/23 his LUE weakness was noted to have returned at an unclear time.
-MRI brain 08/09/23: Small linear acute infarct along the course of the right capone radiata.
-MRA head/neck 08/09/23: No significant carotid plaque formation or hemodynamically significant stenosis, bilaterally. No hemodynamically significant stenosis, branch occlusion, or aneurysm.
I. Acute right capone radiata ischemic infarct; etiology likely small vessel disease.
II. Dementia.
Plan
-Continue DAPT with aspirin 81mg and clopidogrel 75mg daily for 21 days. After 21 days, discontinue clopidogrel and continue aspirin 81mg daily only, indefinitely.
-Goal normotension.
-TTE ordered/pending.
-LDL goal <70. LDL is 140. Home atorvastatin increased from 40mg to 80mg daily.
-Goal normoglycemia, hbA1c is 6.4.
-NIHSS and neurological checks per unit guidelines.
-Provide patient with a stroke education packet.
-PT/OT/ST evaluations.
-DVT prophylaxis.
-Will follow pending results. Patient will need follow-up with Neurology as an outpatient in 4-6 weeks, may see the [facility] ED[facility] or one of the physicians.
Subjective/Objective
Subjective Data
Date of Service: August 10, 2023
No acute events overnight. Patient reports ongoing LUE weakness/incoordination. He also reports mild dizziness occasionally. He denies any headache, vision changes, speech/swallow difficulty, numbness, nausea, chest pain, palpitations, and shortness
of breath.
Objective Data
Vital Signs
Temp Pulse Resp BP Pulse Ox
97.5 F 98 18 161/90 94
08/10/23 07:00 08/10/23 07:00 08/10/23 07:00 08/10/23 07:00 08/10/23 07:00
Lab Results
08/09/23 05:37
08/09/23 05:37
PT 15.1 Sec (11.4-14.6) H 08/08/23 08:42
INR 1.20 08/08/23 08:42
Sodium 134 mmol/L (135-145) L 08/09/23 05:37
Potassium 4.4 mmol/L (3.5-5.1) 08/09/23 05:37
BUN 21 mg/dl (9-20) H 08/09/23 05:37
Glucose 128 mg/dl (70-99) H 08/09/23 05:37
Calcium 10.1 mg/dl (8.4-10.2) 08/09/23 05:37
LDL Cholesterol, Calc 140 mg/dl 08/09/23 05:37
Patient Allergies
seasonal allergies Allergy (Uncoded 03/27/23 04:37)
nasal symtpoms
LDL Level: >70, statin ordered
Review of Systems
-
History Source: Patient
EENT: Negative Blurry Vision, Decreased Vision or Swallowing Difficulty
Respiratory: Negative Cough or Trouble Breathing
Cardiac: Negative Chest Pain or Palpitations
Abdomen/GI: Negative Nausea
Neuro: Dizzy, Weakness (LUE) and Ataxia (LUE); Negative Headache, Numbness or Speech Problem
Physical Exam
-
General: Well Developed, Well Nourished and No Apparent Distress
Eyes: No Ptosis and PERRLA
HEENT: Normocephalic and Atraumatic
Neck: Full Range of Motion
Respiratory: No Dyspnea
GI: Non-distended
Extremities: No Clubbing, No Cyanosis and No Edema
Psych: Confused
Extended Neurological Exam
Mood & Affect: Mood Unremarkable and Affect Unremarkable
Attention Span & Concentration: Awake, Alert and Interactive
Memory: Reduced (Oriented to self and month, not year, place, or situation)
Tremor: Hand Tremor Absent and Head Tremor Absent
Involuntary Movement: None
Speech: Quality Unremarkable, Quantity Unremarkable and Rate of Production Unremarkable
Cranial Nerve II: Left Eye: Pupillary Reactivity Unremarkable, Pupillary Size Unremarkable and Visual Hills Intact
Cranial Nerve II: Right Eye: Pupillary Reactivity Unremarkable, Pupillary Size Unremarkable and Visual Hills Intact
Cranial Nerves III, IV, : Extraocular Movement: Extraocular Movement Full in all Directions
Cranial Nerve V: Facial Sensation: Intact to Light Touch
Cranial Nerve VII: Facial Symmetry: Reduced (very slight left facial drooping)
Cranial Nerve VIII: Hearing: Grossly Reduced
Cranial Nerves IX, X: Palate Movement: Palate Elevation Symmetric
Cranial Nerve XI: Shoulder Shrug: Unremarkable
Cranial Nerve XII: Tongue Protusion: Midline
Muscle Strength, Overall: Reduced on Left (LUE 3+/5, left finger extension absent, trace left wrist ext/flexion)
Muscle Bulk & Tone: Reduced Tone (LUE)
Pronator Drift: Drift in Left Upper Extremity
Deep Tendon Reflexes: Trace Throughout
Cold Sensation: Unremarkable
Vibration Sensation: Unremarkable
Touch Sensation: Double Simultaneous Stimulation Unremarkable
Coordination: Negative [id number] Testing Unremarkable (LUE ataxia)
Babinski Sign: Absent Bilaterally
Modified [place] Score (MRS)
-
Modified [place] Scale (mRS): Moderate disability. Requires some help, able to walk unassisted.
Score: 3
Data Reviewed
-
CT Head: Report Reviewed and Image Reviewed
MRI Head: Report Reviewed and Image Reviewed
MRA Head: Report Reviewed and Image Reviewed
MRA Neck: Report Reviewed and Image Reviewed
Echocardiogram: Pending
Labs: Report Reviewed
Lipid Profile: Report Reviewed
HgbA1C: Report Reviewed
Reviewed with: Physician and Patient
Medications
-
Active Medications
Generic Name Dose Route Start Last Admin
Trade Name Freq PRN Reason Stop Dose Admin
Acetaminophen 650 mg 08/08/23 13:01
Acetaminophen 650 Mg Rectal Suppository RECTAL 09/05/23 13:00
Q4HPRN PRN
SIMMONS, mild pain, or temp >100.4F
Acetaminophen 650 mg 08/08/23 13:01 08/09/23 21:44
Acetaminophen 325 Mg Tablet PO 09/05/23 13:00 650 mg
Q4HPRN PRN Administration
SIMMONS, mild pain, or temp >100.4F
Amlodipine Besylate 5 mg 08/09/23 08:00 08/09/23 10:19
Amlodipine 5 Mg Tablet PO 09/06/23 07:59 5 mg
DAILY CARMELA Administration
Aspirin 81 mg 08/09/23 08:00 08/09/23 10:19
Aspirin 81 Mg (Enteric Coated) Tablet PO 09/06/23 07:59 81 mg
DAILY CARMELA Administration
Atorvastatin Calcium 80 mg 08/09/23 11:30 08/09/23 21:28
Atorvastatin (Lipitor) 40 Mg Tablet PO 09/05/23 21:59 80 mg
HS CARMELA Administration
Clopidogrel Bisulfate 75 mg 08/09/23 08:00 08/09/23 10:19
Clopidogrel 75 Mg Tablet PO 09/06/23 07:59 75 mg
DAILY CARMELA Administration
Cyanocobalamin 1,000 mcg 09/07/23 08:00
Cyanocobalamin (1000 Mcg/Ml) 1 Ml Vial IM 10/05/23 07:59
MONTHLY CARMELA
Enoxaparin Sodium 40 mg 08/08/23 18:00 08/09/23 16:48
Enoxaparin Sodium 40 Mg/0.4 Ml Syringe SC 09/05/23 17:59 40 mg
QPM CARMELA Administration
Glimepiride 1 mg 08/09/23 08:00 08/09/23 10:19
Glimepiride 1 Mg Tablet PO 09/06/23 07:59 1 mg
DAILY CARMELA Administration
Losartan Potassium 100 mg 08/09/23 08:00 08/09/23 10:19
Losartan 50 Mg Tablet PO 09/06/23 07:59 100 mg
DAILY CARMELA Administration
Sodium Chloride 0 flush 08/08/23 14:00
Sodium Chloride 0.9% (Flush) Syringe IV 09/05/23 13:59
PER PROTOCOL CARMELA
Home Medications
�Medication �Instructions �Recorded
aspirin 81 mg tablet,delayed 81 mg PO DAILY Blood Clot 10/22/09
release Prevention/Tx
atorvastatin 40 mg tablet 40 mg PO HS High Cholesterol 10/22/09
glimepiride 1 mg tablet 1 mg PO DAILY Diabetes 07/04/22
losartan 50 mg tablet 100 mg PO DAILY Blood Pressure 07/04/22
metformin 500 mg tablet,extended 2,000 mg PO DAILY Diabetes 07/04/22
release 24 hr
amlodipine 5 mg tablet 5 mg PO DAILY #30 tabs 07/08/22
acetaminophen 325 mg tablet 650 mg PO Q4HPRN PRN mild pain 07/09/22
(Tylenol)
cyanocobalamin (vitamin B-12) 1,000 mcg IM MONTHLY Supplement 07/09/22
1,000 mcg/mL injection solution
meloxicam 15 mg tablet 15 mg PO DAILY Pain 08/08/23
NIH Stroke Score
Subsequent NIH Scale
Date of Subsequent NIH Scale: 08/10/23
Time of Subsequent NIH Scale: 08:30
NIH Stroke Score
Level of Consciousness: 0 - Alert
LOC Questions: 0-Answers both correctly
LOC Commands: 0-Performs both correctly
Best Horizontal Gaze: 0-Normal
Visual Hills: 0=Normal, no visual loss
Facial Palsy: 1=Minor paralysis
Motor - Right Arm: 0=No drift 10 seconds
Motor - Left Arm: 2=Partial vs. gravity
Motor - Right Le-No drift 5 seconds
Motor - Left Le-No drift 5 seconds
Limb Ataxia: 1-Present in one limb
Sensation: 0-Normal
Best Language: 0-No aphasia
Dysarthria: 0-Normal
Extinction and Inattention: 0-No abnormality
Total Score:: 4
Modified [place] (mRS) Score
Modified [place] Scale (mRS): Moderate disability. Requires some help, able to walk unassisted.
Score: 3

Documented by User: Jose Manuel Low MD 08/10/23 09:53
Modified [place] Score (MRS)
-
Score: 3
NIH Stroke Score
NIH Stroke Score
Total Score:: 4
Modified [place] (mRS) Score
Score: 3
[2023-08-10] MEDS: COZAAR 100 MG PO (09:01)
[2023-08-10] MEDS: AMARYL 1 MG PO (09:03)
[2023-08-10] MEDS: ASPIR LOW (ENTERIC COATED) 81 MG PO (09:03)
[2023-08-10] MEDS: NORVASC 5 MG PO (09:03)
[2023-08-10] MEDS: PLAVIX 75 MG PO (09:03)
--- NOTE | 2023-08-10 14:25 | CON.MD ---
Consultation - Medical
-
Referring Provider: Dr. Darwin Velasquez
Chief Complaint: Stroke
History of Present Illness: 83-year-old Right handed male with PMH (as below) presented to [facility] on 08/08/2023 with left hemiparesis of unclear onset. Not a candidate for alteplase or thrombectomy. 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 MRA of the head and neck does not show any significant carotid or vertebral artery or intracranial stenosis or occlusions and no aneurysms or vessel malformations. Started on aspirin and Plavix with statin and
blood pressure control. Plan to stop aspirin after 21 days with lifelong clopidogrel per neurology.
Past Medical History: Asthma, HTN, Hypercholesterolemia, NIDDM, vascular dementia
Procedure History: Cholecystectomy, Right shoulder surgery
Family History: Denies
Social History:
Functional Level Premorbidly: Independent for ADLs, dependent for homemaking
Functional Level Currently:�� Seen by speech with no swallowing concerns, dependent lower extremity self-care
Tobacco: Former
Alcohol: Occasional
Drug use: Denies
Lives with: Spouse
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
Number of floors: 2
# steps to enter: 4 with rail
# steps to second floor: Full flight
Potential First floor set up: Has powder room
Driving: No
Occupation: Retired
Allergies:
Allergy/AdvReac Type Severity Reaction Status Date / Time
seasonal allergies Allergy nasal Uncoded 03/27/23 04:37
symtpoms
Review of Systems:
Constitutional: (x) abNormal _fatigue
Eye: (x) Normal _
Ear/Nose/Throat: (x) Normal _
Respiratory: (x) Normal _
Cardiovascular: (x) Normal _
Gastrointestinal: (x) Normal _
Genitourinary: (x) Normal _
Musculoskeletal: (x) Normal _
Integumentary: (x) Normal _
Neurologic: (x) abNormal _stroke with left-sided weakness
Psychiatric: (x) Normal _
Endocrine: (x) Normal _
Hematologic/Lymphatic: (x) Normal _
Allergic/Immunologic: (x) Normal _
Medications:
Active Current Visit Medication List
Category Date Time Status
Acetaminophen [Tylenol/Feverall] Med 08/08/23 13:01 Active
650 mg RECTAL Q4HPRN PRN
Acetaminophen [Tylenol] Med 08/08/23 13:01 Active
650 mg PO Q4HPRN PRN
Amlodipine [Norvasc] Med 08/09/23 08:00 Active
5 mg PO DAILY
Aspirin Low Dose EC [Aspir Low (Enteric Coated)] Med 08/09/23 08:00 Active
81 mg PO DAILY
Atorvastatin [Lipitor] Med 08/09/23 11:30 Active
80 mg PO HS
Clopidogrel Bisulfate [Plavix] Med 08/09/23 08:00 Active
75 mg PO DAILY
Cyanocobalamin Med 09/07/23 08:00 Active
1,000 mcg IM MONTHLY
Enoxaparin Sodium [Lovenox] Med 08/08/23 18:00 Active
40 mg SC QPM
Flush (0.9% Sodium Chloride) [Flush (Nss)] Med 08/08/23 14:00 Active
See Dose Instructions IV PER PROTOCOL
Glimepiride [Amaryl] Med 08/09/23 08:00 Active
1 mg PO DAILY
Losartan [Cozaar] Med 08/09/23 08:00 Active
100 mg PO DAILY
Vitals:
Temp Pulse Resp BP Pulse Ox
97.8 F 88 18 131/70 94
08/10/23 12:15 08/10/23 12:15 08/10/23 12:15 08/10/23 12:15 08/10/23 12:15
Height 6 ft
Actual Weight 90.889 kg
Body Mass Index (BMI) 27.2
Physical Exam:
General Appearance/Observation: Well-developed, well-nourished male in no apparent distress.
Pain/Comfort Assessment: Denies
Mood/Affect: Appropriate
Eyes: Conjunctiva/Lids: normal ��� Pupils: pupils equal round and reactive to light and Accommodation
Ears/Nose/Throat: oral mucosa moist,� throat clear.������������ Lips/Teeth/Gums: normal
Cardiovascular: Heart: regular, no murmur
Pulses: dorsalis pedis 2+ bilaterally
Respiratory: Respiratory Effort/Chest Expansion: normal ������ Auscultation: Clear to auscultation bilaterally
Gastrointestinal: abdomen not tender, no distension, normal abdominal bowel sounds
Genitourinary: No Day
Extremities: Edema: None Cyanosis: None Trophic changes: None
Neurology Exam:
Orientation: Alert, Oriented to self, Time, Place
Memory: Impaired
Repetition: Intact
Comprehension: Intact
Two step command: Intact
Naming: Intact
Cranial Nerves:
�� CNII: Pupillary light reflex: Intact��� Visual Field: able to read clock across the room.
�� CN III, IV, : Extraocular muscles: Intact
�� CN V: Facial Sensation at Forehead: Intact, Maxilla: Intact, Mandible: Intact
�� CN VII: Facial movement: left facial weakness
�� CN VIII: Hearing: Normal
�� CN IX/X: Speech & swallow: Normal, Position of Uvula: Midline
�� CN XI: Shoulder shrug: Symmetric
�� CN XII: Tongue protrusion: Midline
Sensory:
�� Light touch: Intact in bilateral upper and lower extremities, no extinction to double simultaneous stimulation
Reflexes:
�� Biceps: 2+ bilaterally
�� Brachioradialis: 2+ bilaterally
�� Triceps: 2+ bilaterally
�� Patellar: 2+ bilaterally
�� Achilles: 2+ bilaterally
�� Babinski: Down going bilaterally
�� Clonus: None
�� Damián: Negative bilaterally
Cerebellar: Dysmetria/Ataxia: None on right, too weak on left
Musculoskeletal:Motor: (Manual muscle scale 0-5)
Muscle SA EF WE EE FF FA HF KE DF EHL PF
Right� 5 5 5 5 5 5 4 5 5 5 5
Left 2 2 1 2 1 1 3 5 4 4 5
Tone: Normal in all extremities
Range of Motion: Passively within normal limits in all extremities
Lab Results
Laboratory Data
08/09/23 05:37
08/09/23 05:37
PT 15.1 Sec (11.4-14.6) H 08/08/23 08:42
INR 1.20 08/08/23 08:42
Total Bilirubin 0.4 mg/dl (0.2-1.3) 08/08/23 08:42
AST 20 U/L (17-59) 08/08/23 08:42
ALT 14 U/L (0-50) 08/08/23 08:42
Alkaline Phosphatase 78 U/L (38-126) 08/08/23 08:42
Total Protein 7.0 g/dl (6.3-8.2) 08/08/23 08:42
Albumin 4.2 g/dl (3.5-5.0) 08/08/23 08:42
Diagnostic Results: as per HPI
Assessment
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
Plan
PM&R PT/OT to increase independence with ADLs, improve balance, coordination, endurance, strength, mobility, community reintegration, decreased burden of care on others and family education.
CVA: Secondary prophylaxis with aspirin/plavix for 21 days followed by lifelong Plavix, statin, and blood pressure control (SBP less than 180 and diastolic less than 100 to participate with therapy for ischemic stroke). Continue to monitor
neurologic status.
Left nondominant hemiparesis: High risk for falls and sliding out of chair/bed. Safety reinforced.
- Avoid using affected arm to help lift or pull patient as this will cause trauma to the shoulder.
HTN: losartan 100 mg, amlodipine 5 mg, monitor closely
HLD: Statin������
DM II: Accu-Cheks, insulin sliding scale, glimepiride.
Asthma: monitor�
FEN: Cholesterol-lowering diet
Psych: Psychology consult.� Monitor mood, medications as needed.
Skin: monitor for pressure sores/rashes/lesions.
Pain: acetaminophen as needed.
Bowel: Colace and Senna, PRN bisacodyl.
Bladder: Time void, PVRs, PRN straight cath.
DVT Prophylaxis: mechanical, lovenox
Pulmonary: Incentive spirometry
Safety: Continue to reinforce assistance with all transfers.
Code Status:�DNR
Dispo (date/plan/equipment needs): Home with family care.
Functional and Medical Goals: Modified Independent with ADL�s, ambulation, transfers
Discharge Destination: Acute inpatient rehabilitation
A total of 60 minutes were spent with the patient preparing for the evaluation, obtaining history, performing examination and evaluation, counseling, data review, case management, care coordination, chromosomal disorders counselor, and EMR documentation.
Summary of recommendations:
- Discharge Destination: Acute inpatient rehabilitation
CVA: Secondary prophylaxis with aspirin/plavix for 21 days followed by lifelong Plavix, statin, and blood pressure control (SBP less than 180 and diastolic less than 100 to participate with therapy for ischemic stroke). Continue to monitor
neurologic status.
Left nondominant hemiparesis: High risk for falls and sliding out of chair/bed. Safety reinforced.
- Avoid using affected arm to help lift or pull patient as this will cause trauma to the shoulder.
DVT Prophylaxis: mechanical, lovenox
Thank you for allowing me to care for your patient. Please contact me with any questions or concerns.
--- NOTE | 2023-08-10 16:40 | CM ---
Met with pt and his at bedside
Pt lives with his in a 2 story home
Pt needed some assist prior to hospitalization, ambulates with walker
DME - includes rolling walker, shower chair
SNF - has been to the [facility] in past
PCP - Dr Deuce Zavala
Pharm - [facility]
Pending PT/OT recs
Plan - anticipate acute rehab vs SNF at d/c
[2023-08-10] MEDS: LOVENOX 40 MG SC (17:01)
[2023-08-10] MEDS: LIPITOR 80 MG PO (21:16)
[2023-08-11] VITALS (8 sets, daily range): BP systolic 122–147; BP diastolic 55–88; PULSE 88
[2023-08-11] MEDS: AMARYL 1 MG PO (08:54)
[2023-08-11] MEDS: NORVASC 5 MG PO (08:54)
[2023-08-11] MEDS: COZAAR 100 MG PO (08:54)
[2023-08-11] MEDS: ASPIR LOW (ENTERIC COATED) 81 MG PO (08:54)
[2023-08-11] MEDS: PLAVIX 75 MG PO (08:54)
--- NOTE | 2023-08-11 15:28 | W.PN.HOSP.TC ---
Today's Communication/Plan
-
Per case management communication this morning, no bed available today
Hopefully bed available and discharge tomorrow
Assessment / Plan
Assessment / Plan
Physical Exam
General: Well Developed
Respiratory: Clear
Cardiac: S1/S2
GI: Soft. Nontender. Positive bowel sounds.
Musculoskeletal: No Cyanosis, No Edema
Skin: Warm
Neuro: Awake, Alert, Oriented (He has limited orientation in regards to time elements of this morning and events leading up to his arrival here), 3/5 strength of his left upper extremity, 4/5 strength of his left lower extremity
Hematologic/Lymphatic: Lymphadenopathy
Psych: Calm
Assessment/Plan
Patient with history of hypertension, hypercholesterolemia, diabetes, and dementia, presented to the emergency department secondary to inability to move left arm and left leg. Per , who sleeps in a separate room, when she came downstairs, she
found the patient sitting in a chair. However, patient appeared to be 'limp' on his left side. When she tried to stand up, to bring him to ED, patient was unable to stand up due to weakness. 911 was called at that time. Upon arrival, patient had
no complaints and stated that he could open and close his left hand, as well as raise his left arm, which he could not earlier in the day, in the morning.
Patient reported falling down the steps as he was coming down, but denied any injuries from the fall. Denied headache. Denied blurred vision. Denied dizziness. Denied difficulty with speech. At baseline, patient is independent and ambulates
without assistance. Denied previous history of similar symptoms. Denied recent illness. Denied recent change in medications or diet. He is not at all clear whether he in fact did not fall down stairs as his disputes this as there is no
evidence of that at the home. He does have a history of underlying dementia for years that is been slowly worsening he is not on medication for that. On presentation, there were no signs of trauma and CT scan did not show any signs of bleed. Of
note the patient and he is a diabetic checked his blood sugar at home at the time of amp shortly before paramedics arrived and blood sugar was 132.
Presented to the hospital with left-sided arm greater than leg weakness
CVA/TIA
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
-Symptoms and signs transient no more than 1 to 1-1/2 hours
-Manifested as left side weakness and could not ambulate or stand upright/no apparent speech affect
-CT scan of the brain unremarkable except for white matter ischemic disease known history of dementia
-Received dual antiplatelet therapy with clopidogrel 300/aspirin 325
-Continue on dual antiplatelet therapy for 21 days and then transition to clopidogrel monotherapy and stop aspirin [first day of BOTH (given on same day) of Aspirin 81 mg Clopidogrel 75 mg appeared to be on August 09, 2023]
-Home Atorvastatin increased from 40 mg to 80 mg daily (goal LDL moving forward will be less than 80)
-Non-tPA stroke protocol/did not meet criteria for thrombolysis with NIH score of 0
-Echocardiogram unremarkable
-Neurology consulted, recommendations appreciated
-PT/OT
-Possible [facility] -- physiatry consult has been placed by Neurology
Type 2 diabetes mellitus
-Continue glimepiride
-Hold metformin
-Sliding scale coverage low-dose
Essential hypertension by history
-Continue amlodipine, losartan
Dementia(vascular)
-That has been waxing and waning for years but slowly progressing
-Cognition according to spouse is presently at baseline
Placed on observation status
DVT prophylaxis with Lovenox and SCDs
DNR/DNI/was substantiated at bedside by spouse
Anticipated Discharge: Within 24 hours
Subjective/Interval History
-
Date of Service: August 11, 2023
Patient was seen and examined. He denied any new symptoms or complaints.
Objective Data
-
Vital Signs:
Vital Signs
Temp Pulse Resp BP Pulse Ox
97.5 F 93 18 126/78 95
08/11/23 11:00 08/11/23 11:00 08/11/23 11:00 08/11/23 11:00 08/11/23 11:00
I&O
08/10/23 08/11/23 08/12/23
06:59 06:59 06:59
Intake Total 1320 / 1320 985 / 985
Output Total 400 / 400 1425 / 1425
Balance 920 / 920 -440 / -440
[2023-08-11] MEDS: LOVENOX 40 MG SC (17:25)
[2023-08-11] MEDS: LIPITOR 80 MG PO (21:29)
[2023-08-12 03:20] VITALS: BP 141/81
--- NOTE | 2023-08-12 06:15 | W.PN.UPDATE ---
Update Note
Progress Note Update
Patient c/o burning with urination and frequency noted by RN. will order UA to reflex culture.
--- NOTE | 2023-08-12 06:16 | PTCARENOTE ---
Pt c/o burning w/ urination and urinary frequency. Urine clear and yellow. REJI Velazquez notified, UA ordered. Will obtain clean catch of urine when pt needs to void. Call tam within reach, Medsitter in room, plan of care ongoing.
[2023-08-12 07:00] VITALS: BP 142/87
[2023-08-12] MEDS: ASPIR LOW (ENTERIC COATED) 81 MG PO (09:43)
[2023-08-12] MEDS: NORVASC 5 MG PO (09:44)
[2023-08-12] MEDS: AMARYL 1 MG PO (09:44)
[2023-08-12] MEDS: COZAAR 100 MG PO (09:44)
[2023-08-12] MEDS: PLAVIX 75 MG PO (09:44)
[2023-08-12 11:00] VITALS: BP 126/76
--- NOTE | 2023-08-12 11:32 | CM ---
Addendum entered by Tami Gill 08/12/23 11:48:
Received call back from Susan at [facility]
Pt approved for 7 days - start 08/11 - 08/17
NR - 08/17 - [phone]
Auth # - [id number]
Called Lázaro at [facility] - given auth # and info
Plan - transfer to [facility]
R - [phone]
F - [phone]
Original Note:
Pt medically ready for d/c
Accepted to [facility]
Called pts insurance [phone] to start auth
Spoke with Susan
Verbally given clinical info to review, NPI's
Will return call - auth pending
Plan - transfer to [facility] when auth obtained
[2023-08-12 11:42] VITALS: BP 133/78; PULSE 92
--- NOTE | 2023-08-12 11:45 | W.PN.HOSP.TC ---
Addendum entered and electronically signed by Darwin Bae MD 08/12/23 12:49:
Patient's confirmed that patient now has dysuria. UA is pending. I ordered 1 gram Rocephin to be given now, and will discharge on Cefpodoxime 200 mg orally twice daily for 7 day [facility] staff and providers will need to closely follow-up with
the results of the urinalysis and if applicable, urine culture. They will also need to order blood cultures if needed based on urine culture results (if urine culture was done).
Original Note:
Today's Communication/Plan
-
Discharge today
Assessment / Plan
Assessment / Plan
Physical Exam
General: Well Developed
Respiratory: Clear
Cardiac: S1/S2
GI: Soft. Nontender. Positive bowel sounds.
Musculoskeletal: No Cyanosis, No Edema
Skin: Warm
Neuro: Awake, Alert, Oriented (He has limited orientation in regards to time elements of this morning and events leading up to his arrival here), 3/5 strength of his left upper extremity, 4/5 strength of his left lower extremity
Hematologic/Lymphatic: Lymphadenopathy
Psych: Calm
Assessment/Plan
Patient with history of hypertension, hypercholesterolemia, diabetes, and dementia, presented to the emergency department secondary to inability to move left arm and left leg. Per , who sleeps in a separate room, when she came downstairs, she
found the patient sitting in a chair. However, patient appeared to be 'limp' on his left side. When she tried to stand up, to bring him to ED, patient was unable to stand up due to weakness. 911 was called at that time. Upon arrival, patient had
no complaints and stated that he could open and close his left hand, as well as raise his left arm, which he could not earlier in the day, in the morning.
Patient reported falling down the steps as he was coming down, but denied any injuries from the fall. Denied headache. Denied blurred vision. Denied dizziness. Denied difficulty with speech. At baseline, patient is independent and ambulates
without assistance. Denied previous history of similar symptoms. Denied recent illness. Denied recent change in medications or diet. He is not at all clear whether he in fact did not fall down stairs as his disputes this as there is no
evidence of that at the home. He does have a history of underlying dementia for years that is been slowly worsening he is not on medication for that. On presentation, there were no signs of trauma and CT scan did not show any signs of bleed. Of
note the patient and he is a diabetic checked his blood sugar at home at the time of amp shortly before paramedics arrived and blood sugar was 132.
Presented to the hospital with left-sided arm greater than leg weakness
CVA/TIA
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
-Symptoms and signs transient no more than 1 to 1-1/2 hours
-Manifested as left side weakness and could not ambulate or stand upright/no apparent speech affect
-CT scan of the brain unremarkable except for white matter ischemic disease known history of dementia
-Received initial dual antiplatelet therapy with clopidogrel 300/aspirin 325
-Continue on dual antiplatelet therapy for 21 days and then transition to clopidogrel monotherapy and stop aspirin [first day of BOTH (given on same day) of Aspirin 81 mg Clopidogrel 75 mg appeared to be on August 09, 2023]
-Home Atorvastatin increased from 40 mg to Atorvastatin 80 mg daily (goal LDL moving forward will be less than 80)
-Non-tPA stroke protocol/did not meet criteria for thrombolysis with NIH score of 0
-Echocardiogram unremarkable
-Neurology consulted, recommendations appreciated
-PT/OT
-Discharge to [facility] today
Dysuria and Urinary Frequency - RESOLVED
-No fever
-Monitor in rehab
-Check CBC and BMP in [facility]
Type 2 diabetes mellitus
-Continue glimepiride
-Continue Metformin on discharge
Essential hypertension
-Continue amlodipine, losartan
Dementia (vascular)
-That has been waxing and waning for years but slowly progressing
-Cognition according to spouse is presently at baseline
Placed on observation status
DVT prophylaxis with Lovenox and SCDs
DNR/DNI/was substantiated at bedside by spouse
More than 30 minutes spent in discharge including
Final examination of the patient
Summarizing hospital stay
Instructions for continuing care to all relevant caregivers
Preparation of discharge records, prescriptions, and referral forms
Total time spent (in minutes): 38
Anticipated Discharge: Today
Subjective/Interval History
-
Date of Service: August 12, 2023
Patient was seen and examined. He was sitting comfortably in his chair and denied any new symptoms or complaints. Overnight, there was a report that patient reported dysuria and urinary frequency, but this morning, patient and his nurse confirmed
that patient had no urinary symptoms.
Objective Data
-
Labs:
Laboratory Results
08/12/23
11:41
WBC Pending
Hgb Pending
Hct Pending
Plt Count Pending
Sodium Pending
Potassium Pending
Chloride Pending
Carbon Dioxide Pending
BUN Pending
Creatinine Pending
Glucose Pending
Calcium Pending
Vital Signs:
Vital Signs
Temp Pulse Resp BP Pulse Ox
97.6 F 85 18 126/76 96
08/12/23 11:00 08/12/23 11:00 08/12/23 11:00 08/12/23 11:00 08/12/23 11:00
I&O
08/11/23 08/12/23 08/13/23
06:59 06:59 06:59
Intake Total 985 / 985 1440 / 1440
Output Total 1425 / 1425 1175 / 1175
Balance -440 / -440 265 / 265
--- NOTE | 2023-08-12 12:59 | W.DS.TRANS ---
DC Summary - History Instructor
-
Discharge Instructions:
Discharge Diagnosis/Procedures Presented to the hospital with left-sided arm
greater than leg weakness
Cerebrovascular Accident/Transient Ischemic
Attack
Clear capone radiata and basal ganglia
infarction
Dysuria and Urinary Frequency - RESOLVED
Type 2 diabetes mellitus
Essential hypertension
Dementia (vascular)
Diet Low Cholesterol,Other diet
Additional Diets Also Thin Liquids
Driving Restrictions No driving
Instructions:
Stand-Alone Forms:
Changes to Home Medications: Yes
Discharge Medications:
DC Medications w/original date entered in [facility]
aspirin 81 mg tablet,delayed release 81 mg PO DAILY Blood Clot Prevention/Tx 10/22/09
glimepiride 1 mg tablet 1 mg PO DAILY Diabetes 07/04/22
losartan 50 mg tablet 100 mg PO DAILY Blood Pressure 07/04/22
metformin 500 mg tablet,extended release 24 hr 2,000 mg PO DAILY Diabetes 07/04/22
amlodipine 5 mg tablet 5 mg PO DAILY #30 tabs 07/08/22
acetaminophen 325 mg tablet (Tylenol) 650 mg PO Q4HPRN PRN mild pain 07/09/22
cyanocobalamin (vitamin B-12) 1,000 mcg/mL injection solution 1,000 mcg IM MONTHLY Supplement 07/09/22
atorvastatin 40 mg tablet 80 mg (2 x 40 mg) PO HS #60 tabs 08/12/23
cefpodoxime 200 mg tablet 200 mg PO Q12H 7 days #14 tabs 08/12/23
clopidogrel 75 mg tablet 75 mg PO DAILY #30 tabs 08/12/23
Home Medication Changes
Atorvastatin is now 80 mg HS (not 40 mg).
Aspirin SHOULD ONLY BE CONTINUED through August 29, 2023, BUT THEN STOPPED.
Continue Clopidogrel indefinitely.
Cefpodoxime is a new, antibiotic medication.
Meloxicam stopped due to risk of adverse effects (for example, gastrointestinal bleed).
Pending Results: Yes
Additional Pending Results:
Urinalysis, Urine Culture Results
Total time spent discharging patient (in min): 38
[2023-08-12 13:07] LABS: Urine Albumin 1+ (Neg - Trace); Urine Bilirubin Negative (Negative); Urine Character Clear (Clear); Urine Color Yellow; Urine Glucose 1+ (Negative); Urine Ketone Negative (Negative); Urine Leukocyte Trace (Negative); Urine Nitrite Negative (Negative); Urine Occult Blood 2+ (Negative); Urine Specific Gravity 1.015 (<1.030); Urine Urobilinogen Negative (Neg - 1+)
[2023-08-12] MEDS: ROCEPHIN 1000 MG IV (13:58)
[2023-08-12] MEDS: STERILE WATER FOR INJECTION 10 ML IV (13:58)
--- NOTE | 2023-08-15 07:30 | W.DCSUMMARY ---
Discharge Summary
Discharge Data
Date of Admission: 08/08/23
Date of Discharge: 08/12/23
Total time spent discharging patient (in min): 38
-
Pending Results: Yes
Additional Pending Results:
Urinalysis, Urine Culture Results
Hospital Course
83 y/o male with past medical history of hypertension, hypercholesterolemia, diabetes, and dementia, presents to the emergency department secondary to inability to move left arm and leg. He also was reported to have fallen down the stairs, but
denied any injury from the fall. CT head did not show any acute stroke. Patient received loading doses of Aspirin and Plavix. Neurology was consulted and MRI brain was ordered -- the MRI brain without contrast showed, as per radiologist's report,
'Small linear acute infarct along the course of the right capone radiata.' MRI of the head and neck showed, as per radiologist's report, 'No hemodynamically significant stenosis, branch occlusion, or aneurysm' and 'No significant carotid plaque
formation or hemodynamically significant stenosis, bilaterally.' Patient's Atorvastatin was increased, and patient was continued on dual antiplatelet therapy with plan to continue for 21 days - after 21 days, the plan would be to transition to
clopidogrel monotherapy and stop aspirin. Patient had dysuria for which urinalysis was ordered and Rocephin ordered. Patient was able to be discharged to [facility] and the provider(s) at [facility] would need to follow-up on the urine study results
of suspected urinary tract infection.
Discharge Plan
-
Patient Disposition: Acute Rehab Facility
Discharge Diagnosis/Procedures: Presented to the hospital with left-sided arm greater than leg weakness
Cerebrovascular Accident/Transient Ischemic Attack
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
Dysuria and Urinary Frequency - RESOLVED
Type 2 diabetes mellitus
Essential hypertension
Dementia (vascular)
Condition: Fair
Diet: Low Cholesterol and Other diet
Additional Diets: Also Thin Liquids
Driving Restrictions: No driving
Activity Restrictions/Additional Instructions:
Urinalysis was ordered for patient as he had some dysuria and urinary frequency -- Rocephin was ordered one-time dose for 08/12/23 -- please closely follow-up on the urinalysis results and if applicable, urine culture results as well; oral
antibiotics should be changed based on urine culture sensitivities. Depending on the urine culture (if it was done based on the urinalysis reflex order), may need blood cultures ordered too. Monitor for any fevers and monitor vital signs closely.
Continue on dual antiplatelet (Aspirin and Plavix) therapy for 21 days and then transition to clopidogrel monotherapy and stop aspirin [first day of BOTH (given on same day) of Aspirin 81 mg Clopidogrel 75 mg was on August 09, 2023].
Patient will need CBC and BMP labwork done by 08/13/23 the latest (but preferably by 08/12/23 evening).
Follow general aspiration precautions including upright positioning, small sips/bites, slow rate of intake.
Speech therapy should follow patient while in rehab.
Referrals:
Jose Manuel Low MD [Active] - in two to three weeks (Hospital follow-up)
Frantz Zavala MD [Family Provider] - in one to two days
Additional Discharge Medication Instructions: Atorvastatin is now 80 mg HS (not 40 mg).
Aspirin SHOULD ONLY BE CONTINUED through August 29, 2023, BUT THEN STOPPED.
Continue Clopidogrel indefinitely.
Cefpodoxime is a new, antibiotic medication.
Meloxicam stopped due to risk of adverse effects (for example, gastrointestinal bleed).
Prescriptions:
New
atorvastatin 40 mg Tablet
80 mg PO HS Qty: 60 1RF
clopidogrel 75 mg Tablet
75 mg PO DAILY Qty: 30 2RF
cefpodoxime 200 mg tablet
200 mg PO Q12H 7 Days Qty: 14 0RF
Rx Instructions:
Start date 08/13/23
Continued
aspirin 81 MG tablet,delayed release (DR/EC)
81 mg PO DAILY
losartan 50 mg tablet
100 mg PO DAILY
glimepiride 1 mg tablet
1 mg PO DAILY
metformin 500 mg tablet extended release 24 hr
2,000 mg PO DAILY
amlodipine 5 mg Tablet
5 mg PO DAILY Qty: 30 0RF
acetaminophen [Tylenol] 325 mg Tablet
650 mg PO Q4HPRN PRN (Reason: mild pain)
cyanocobalamin (vitamin B-12) 1,000 mcg/mL solution
1,000 mcg IM MONTHLY
Rx Instructions:
next dose due 09/07/23
Discontinued
atorvastatin 40 mg Tablet
40 mg PO HS
meloxicam [Mobic] 15 mg Tablet
15 mg PO DAILY
Discharge Orders:
Discharge Patient (As Directed); Ordered 08/12/23
Ordered By: Darwin Bae
Discharge Date and Time
Discharge Date/Time: 08/12/23 14:40
Print Language: ROMANIAN
== END 2023-08-12 14:40 | DRG 66 ==
LOC: 3 WEST ACU 08:30
PROVIDERS: Emergency Medicine; Nurse Practitioner Gerontology; ADMITTING PHYSICIAN Internal Medicine; ATTENDING PHYSICIAN Hospitalist; CONSULT PHYSICIAN Physical Medicine & Rehabilitation; CONSULT PHYSICIAN Psychiatry & Neurology Neurology; EMERGENCY PHYSICIAN Emergency Medicine; FAMILY PHYSICIAN Internal Medicine
DX: I63.81 Other cerebral infarction due to occlusion or stenosis of small artery (principal); I10 Essential (primary) hypertension; E78.00 Pure hypercholesterolemia, unspecified; E11.9 Type 2 diabetes mellitus without complications; F01.50 Vascular dementia, unspecified severity, without behavioral disturbance, psychotic disturbance, mood disturbance, and anxiety; R35.0 Frequency of micturition; R30.0 Dysuria; Z66 Do not resuscitate; Z79.02 Long term (current) use of antithrombotics/antiplatelets; Z91.81 History of falling
CPT/HCPCS: 70450; 70544; 70548; 70551; 80048; 80053; 80061; 81003; 81015; 83036; 84484; 85025; 85027; 85610; 92610; 93005; 93306; 97112; 97116; 97163; 97166; 99285; A9585

== ENCOUNTER 2023-10-22 19:54 | Emergency (ER) | payer OTHER, SELFPAY ==
[2023-10-22 19:59] VITALS: BP 102/66
[2023-10-22 20:58] VITALS: BMI 28.3
[2023-10-22 21:01] VITALS: BP 137/75
[2023-10-22 21:26] LABS: Urine Albumin Trace (Neg - Trace); Urine Bilirubin Negative (Negative); Urine Character Clear (Clear); Urine Color Yellow; Urine Glucose Negative (Negative); Urine Ketone Trace (Negative); Urine Leukocyte Negative (Negative); Urine Nitrite Negative (Negative); Urine Occult Blood Negative (Negative); Urine Specific Gravity 1.015 (<1.030); Urine Urobilinogen Negative (Neg - 1+); Urine pH 6.5 (5.0-9.0)
--- NOTE | 2023-10-22 23:03 | ED.GENMED ---
History of Present Illness
General
Chief Complaint: Urinary Symptoms
Source: patient and spouse
Exam Limitations: dementia
Time Seen by Provider: 10/22/23 20:56
Nursing documentation reviewed up to this point in time: agreed with except (Triage note mentions urinary burning but spouse says that patient has actually had frequency)
History of Present Illness
History of Present Illness:
83-year-old male with a past medical history of dementia, asthma, hypertension, hyperlipidemia, diabetes who presents to the emergency room with his for evaluation of constipation and increased urinary frequency. His reports that for the
past few months he has had increased urinary frequency�she says that he is going to the bathroom every 2 hours particularly at nighttime. Primary doctor started patient on Flomax and she says this did not seem to be helping. It seems to be worse
over the past few days. Coinciding with this worsening of the urinary frequency has noticed acute constipation�patient has not had a bowel movement she says in about 4 to 5 days. He does have chronic constipation and takes senna, Colace,
MiraLAX daily. Patient denies any symptoms but is limited due to his dementia. He denies feeling any abdominal pain but he continuously says that he feels like he has to have a bowel movement. He has tried to pass stool multiple times since
arrival unsuccessfully.
Past History
Past History
ED Past Medical History: Asthma, HTN, Hypercholesterolemia, NIDDM and Other (Dementia)
ED Past Surgical History: Cholecystectomy and Orthopedic (Right shoulder surgery)
Social History
Tobacco: Former smoker
Alcohol: Occasional
Personal:
Living: with family
Employment: Retired
Review of Systems
Review of Systems
Unable to obtain full review of systems at this time due to: dementia
All Other Systems: Not applicable
Phy Exam
Physical Exam
Physical Exam:
General: Awake, alert, not in distress
Head: Normocephalic, atraumatic
Eyes: Conjunctiva normal
Throat: Airway intact, handling secretions
Neck: Trachea midline, supple without meningismus
Lungs: Clear to auscultation bilaterally, no wheezing, rales, rhonchi
Heart: Regular rate and rhythm, no murmurs, gallops, or rubs
Abd: Soft, non distended, nontender to deep palpation
Rectal: Fecal impaction
Neuro: No gross deficit
Skin: no rash
Extremities: Warm and well-perfused
Scores
Heart Failure Risk
Heart Failure Risk Score: Not Applicable
Heart Score for Chest Pain Patients
STEMI patient?: Not applicable
Withdrawal Assessment of Alcohol
Withdrawal Assessment Completed?: Not applicable
Course
Orders/Labs/Results
Orders:
Orders
10/22/23 21:18
Urinalysis Reflex To Culture Urgent
Date Specimen was Collected: 10/22/23
Time Specimen was Collected: 20:12
10/22/23 21:22
Enema- Treatment ONCE
Type: Milk of Molasses
10/22/23 23:03
Magnesium Citrate [Citroma] 300 ml PO ONCE ONE
Abnormal Lab Results
10/22/23
21:18
Urine Ketones Trace A
(Negative)
Vital Signs
Initial and Last Documented VS:
Initial Vital Signs
Temp Pulse Resp BP Pulse Ox
36.9 C 94 26 102/66 95
10/22/23 19:59 10/22/23 19:59 10/22/23 19:59 10/22/23 19:59 10/22/23 19:59
Last Documented Vital Signs
Temp Pulse Resp BP Pulse Ox
36.9 C 83 18 137/75 98
10/22/23 19:59 10/22/23 21:05 10/22/23 21:01 10/22/23 21:01 10/22/23 21:05
MDM/Problems Addressed
Differential Diagnosis Includes:
Fecal impaction/constipation, prostatism, UTI
MDM/Problems Addressed:
83-year-old male with chronic urinary frequency likely related to prostatism presents with worsening urinary frequency and constipation over the past 4 to 5 days. Complains of sensation that he has to have a bowel movement but cannot pass stool.
Suspect fecal impaction is likely worsening urinary retention. He did have 400 cc in his bladder prevoid on bladder scan, was able to void 125 cc with 200-300 cc residual. Will plan for enema for fecal impaction. Send urinalysis. Reassess after
the above.
Urinalysis negative for infection. After enema patient initially passed a few small hard balls of stool before passing a much larger bowel movement. He then emptied his bladder had 100 cc residual on bladder scan. Rectal exam after passing stool
showed empty rectal vault. I had a long discussion with patient's �will plan to give magnesium citrate to clear out from above. Advised to increase MiraLAX dosing daily for better management of chronic constipation and advised that this may
help with his chronic urinary frequency as well. He does have dementia and sundowning and this is a chronic issue according to the . We had a long discussion about potentially even admission for placement to SNF as she is quite overwhelmed
with his care at home but ultimately she wishes to discuss this with family more before making such a decision. I think he is stable for discharge at this point and feels comfortable with this plan. All questions answered.
Chronic conditions affecting care:
Dementia, prostatism
Acute Exacerbation and/or Progression of Chronic Illness:
Acute on chronic constipation
*Pulse Oximetry
Patient hypoxic: no
*Critical Care Note
Total Time (30-74mins, 75-104mins- exclusive of procedures): Not Applicable
Data Reviewed
Source: patient, records and spouse
Patient Management
Escalation/DeEscalation of care consider admission/obs:
Considered admission for placement but ultimately opted for discharge after discussion with
ED Attending Note
-
Portions of this chart may have been created with voice recognition software.� Occasional wrong word or��sound alike� substitutions may have occurred due to the inherent limitations of voice recognition software.
Discharge Plan
Departure
Patient Disposition: Home (Routine Discharge)
Date of Disposition: 10/22/23
Time of Disposition: 23:10
Patient with high blood pressure during this ER visit?: No
Discharge Problem:
Fecal impaction
Instructions: Fecal Impaction (DC)
Prescriptions:
No Action
acetaminophen [Tylenol] 325 mg Tablet
650 mg PO Q4HPRN PRN (Reason: mild pain)
cyanocobalamin (vitamin B-12) 1,000 mcg/mL solution
1,000 mcg IM MONTHLY
Rx Instructions:
next dose due 09/07/23
trazodone 50 mg Tablet
50 mg PO HS 30 Days Qty: 30 0RF
trazodone 50 mg Tablet
50 mg PO HSPRN PRN (Reason: if no sleep after HS dose) 30 Days Qty: 30 0RF
glimepiride 1 mg Tablet
1 mg PO DAILY 30 Days Qty: 30 0RF
tamsulosin 0.4 mg Capsule
0.8 mg PO DAILY@2100 3 Days Qty: 30 0RF
amlodipine 10 mg Tablet
10 mg PO QPM 30 Days Qty: 30 0RF
bisacodyl 10 mg Suppository
10 mg [place] HSPRN PRN (Reason: if no BM with oral bisacodyl) 30 Days Qty: 30 0RF
docusate sodium 100 mg Capsule
100 mg PO BID 30 Days Qty: 60 0RF
bisacodyl 5 mg Tablet,Delayed Release (Dr/Ec)
10 mg PO DAILYPRN PRN (Reason: constipation) 30 Days Qty: 30 0RF
loratadine 10 mg Tablet
10 mg PO DAILY 30 Days Qty: 30 0RF
sennosides [Senna Laxative] 8.6 mg Tablet
17.2 mg PO NOON 30 Days Qty: 60 0RF
enoxaparin 40 mg/0.4 mL Syringe
40 mg SC QPM 30 Days Qty: 12 0RF
atorvastatin 40 mg Tablet
80 mg PO HS Qty: 60 1RF
clopidogrel 75 mg Tablet
75 mg PO DAILY Qty: 30 2RF
Referrals:
Frantz Zavala MD [Family Provider] - Follow up in 2-3 days
Activity Restrictions/Additional Instructions:
Thank you for visiting the Emergency Department at [facility].
1. Please schedule a follow up appointment as directed. Call first thing tomorrow morning to make an appointment.
2. If indicated, please take your medications as instructed and indicated on discharge paperwork.
3. If any of your symptoms do not improve, or persist, or become more severe within 6-12 hours, please return to the emergency department for further care.
4. Please return to the emergency department if you develop a headache, neck pain/stiffness, fever greater than 100.4F, chest pain, shortness of breath, persistent nausea, vomiting, slurred speech, difficulty walking, numbness/tingling, weakness,
signs of infection or any other symptoms that are worrisome to you.
Please call [phone] if you have any questions.
Interventions
Interventions:
*Risk Screen - Suicide Last Done: 10/22/23 20:58
*General Assessment Last Done: 10/22/23 20:58
*Neglect/Abuse Screening Last Done: 10/22/23 20:58
QX-Xvjfjw-Tpeqobzsuz Assessment Last Done: 10/22/23 20:58
ED-Male Genitourinary Assessment Last Done: 10/22/23 20:58
Discharge Date and Time
Print Language: UGANDAN
[2023-10-22 23:09] VITALS: BP 137/87
[2023-10-22] MEDS: CITROMA 300 ML PO (23:19)
== END 2023-10-22 23:35 | disposition home or self-care (01) ==
LOC: EMR 19:54
PROVIDERS: EMERGENCY PHYSICIAN Emergency Medicine; FAMILY PHYSICIAN Internal Medicine
DX: K56.41 Fecal impaction (principal); F03.90 Unspecified dementia, unspecified severity, without behavioral disturbance, psychotic disturbance, mood disturbance, and anxiety; I10 Essential (primary) hypertension; E11.9 Type 2 diabetes mellitus without complications; E78.00 Pure hypercholesterolemia, unspecified; Z87.891 Personal history of nicotine dependence
CPT/HCPCS: 99283; 51798; 81003

== ENCOUNTER 2023-10-26 18:26 | Emergency (ER) | payer OTHER, SELFPAY ==
[2023-10-26] VITALS (7 sets, daily range): BP systolic 138–161; BP diastolic 68–93; BMI 27.7
[2023-10-26 19:48] LABS: % Basophils 0.7 % (0-2); % Eosinophils 0.5 % (0-6); % Immature Granulocytes 0.6 % (0-0.5); % Lymphocytes 8.2 % (20.5-51.1); Absolute Basophils 0.1 10^3/uL (0-0.2); Absolute Eosinophils 0.1 10^3/uL (0-0.7); Absolute Immature Granulocytes 0.1 10^3/uL (0-0.05); Absolute Lymphocytes 1.1 10^3/uL (1.2-3.4); Absolute Neutrophils 11.5 10^3/uL (1.4-6.5); Hemoglobin 13.2 g/dL (13.0-18.0); Mean Corp Hgb Conc. 34.7 g/dL (33.0-37.0); Mean Corpuscular Hgb 28.8 pg (27.0-31.0); Mean Platelet Volume 10.8 fL (7.4-10.4); Nucleated Red Blood Cells % 0 % (-); Platelet Count 247 10^3/uL (130-400); Red Blood Cell Count 4.58 10^6/uL (4.70-6.10); Red Cell Dist. Width 13.2 % (11.5-14.5); White Blood Cell Count 13.9 10^3/uL (4.8-10.8)
[2023-10-26 20:14] LABS: ALT (SGPT) 15 U/L (0-50); AST (SGOT) 22 U/L (17-59); Albumin 4.4 g/dl (3.5-5.0); Alkaline Phosphatase 110 U/L (38-126); Blood Urea Nitrogen 23 mg/dl (9-20); Calcium 9.9 mg/dl (8.4-10.2); Carbon Dioxide 24 mmol/L (22-30); Chloride 99 mmol/L (98-107); Estimated Creatinine Clearance 47 ml/min; Glucose 160 mg/dl (70-99); Potassium 4.5 mmol/L (3.5-5.1); Sodium 133 mmol/L (135-145); Total Bilirubin 0.5 mg/dl (0.2-1.3); Total Protein 7.3 g/dl (6.3-8.2); eGFR 54.51
--- NOTE | 2023-10-26 21:50 | ED.GENMED ---
History of Present Illness
General
Chief Complaint: Change in Mental Status
Source: patient and family
Exam Limitations: none
Time Seen by Provider: 10/26/23 21:41
History of Present Illness
History of Present Illness:
See MDM
Past History
Past History
ED Past Medical History: Asthma, HTN, Hypercholesterolemia, NIDDM and Other (Dementia)
ED Past Surgical History: Cholecystectomy and Orthopedic (Right shoulder surgery)
Social History
Tobacco: Former smoker
Alcohol: Occasional
Personal:
Living: with family
Employment: Retired
Phy Exam
Physical Exam
Physical Exam:
See MDM
Course
Orders/Labs/Results
Orders:
Orders
10/26/23 19:40
CMP [Comprehensive Metabolic Panel] Urgent
10/26/23 19:41
Complete Blood Count/With Diff Urgent
10/26/23 21:49
CT Abd/pelvis W Iv Cont Urgent
Comment:
Reason For Exam: recurrent abd pain, constipation
Enema- Treatment ONCE
Type: Milk of Molasses
10/27/23 Breakfast
NPO
Allow oral meds: No
Allow clear liquids: No
Abnormal Lab Results
10/26/23 10/26/23
19:40 19:41
WBC 13.9 H 10^3/uL
(4.8-10.8)
RBC 4.58 L 10^6/uL
(4.70-6.10)
Hct 38.0 L %
(39.0-52.0)
MPV 10.8 H fL
(7.4-10.4)
Abs Immat Gran (auto) 0.1 H 10^3/uL
(0-0.05)
Absolute Neuts (auto) 11.5 H 10^3/uL
(1.4-6.5)
Absolute Lymphs (auto) 1.1 L 10^3/uL
(1.2-3.4)
Absolute Monos (auto) 1.0 H 10^3/uL
(0.1-0.6)
Immature Gran % 0.6 H %
(0-0.5)
Neutrophils % 83.0 H %
(42.2-75.2)
Lymphocytes % 8.2 L %
(20.5-51.1)
Sodium 133 L mmol/L
(135-145)
BUN 23 H mg/dl
(9-20)
Glucose 160 H mg/dl
(70-99)
10/26/23 19:41
10/26/23 19:40
Vital Signs
Initial and Last Documented VS:
Initial Vital Signs
Temp Pulse Resp BP Pulse Ox
98.1 F 106 24 140/86 96
10/26/23 18:43 10/26/23 18:43 10/26/23 18:43 10/26/23 18:43 10/26/23 18:43
Last Documented Vital Signs
Temp Pulse Resp BP Pulse Ox
98.9 F 99 18 140/85 100
10/26/23 19:30 10/26/23 22:32 10/26/23 22:32 10/26/23 22:32 10/26/23 22:32
MDM/Problems Addressed
Differential Diagnosis Includes:
HPI and MDM Narrative:
83-year-old male presenting back to the emergency department with recurrent constipation. He was here few days ago and had a rectal disimpaction and enema and MiraLAX was added to his bowel regimen. Daughter brought him back because patient is
still having trouble defecating. She did give an enema earlier today and did disimpaction. When entered the room, patient is on the toilet passing very small pellet size stool. Given the recurrence, will obtain CT and will provide another enema
Physical exam
General: Uncomfortable, actively trying to defecate
HEENT: protecting airway
Neck: appears supple
CV: No evidence of cyanosis
Resp: No accessory muscle use
Abd: Non-distended
Extremities: No deformities
Neuro: alert
Psych: Normal affect
Skin: Intact
Problems Addressed including Acute and Chronic Conditions affecting care:
1. Constipation
Acuity: acute
Prognosis: stable
Details: Will give enema and obtain CT given the recurrence
Updates
CT without stercoral colitis. There is large amount of stool. At this point, I did a rectal disimpaction and large amount of stool was removed
11:50 PM family requesting to go home. Patient did have a bowel movement in bed. I did offer another rectal disimpaction but patient is refusing. Will write for lactulose
Differential Diagnosis (but not limited to): Stercoral colitis, constipation
Testing considered: Repeat urinalysis
Drug therapy (if applicable): OTC meds, please see d/c instruction regarding Rx drugs
Amount and/or Complexity of Data Reviewed
Clinical info obtained from: Patient
External data reviewed: Recently seen for similar symptoms and MiraLAX was added to his bowel regimen
Labs I independently reviewed (but not limited to): Mild leukocytosis
Radiology: The CT scan was personally and independently reviewed. In addition, official CT report reviewed.
Pulse Ox: not hypoxic
EKG independently reviewed: N/A
Drill Press Set Up Operator: N/A
Critical Care: N/A
Risk of Complication:
Social Determinants of health: Good social support
Discussed with other providers: N/A
Escalation of Care includes Admit/Obs: After being observed in the Emergency Department, pt stable for discharge.
Occasional wrong word or 'sound a like' substitutions may have occurred due to the inherent limitations of voice recognition software. Read the chart carefully and recognize, using context, where substitutions have occurred.
*Critical Care Note
Total Time (30-74mins, 75-104mins- exclusive of procedures): Not Applicable
ED Attending Note
-
Portions of this chart may have been created with voice recognition software.� Occasional wrong word or��sound alike� substitutions may have occurred due to the inherent limitations of voice recognition software.
Discharge Plan
Departure
Patient Disposition: Home (Routine Discharge)
Date of Disposition: 10/26/23
Time of Disposition: 23:51
Patient with high blood pressure during this ER visit?: Yes
Discharge Problem:
Constipation
Instructions: BLOOD PRESSURE
Prescriptions:
New
lactulose 20 gram/30 mL solution
20 g PO BID 5 Days Qty: 300 0RF
No Action
cyanocobalamin (vitamin B-12) 1,000 mcg/mL solution
1,000 mcg IM MONTHLY
Rx Instructions:
next dose due 09/07/23
trazodone 100 mg tablet
100 mg PO HS
tamsulosin 0.4 mg capsule
0.8 mg PO HS
glimepiride 1 mg Tablet
1 mg PO DAILY 30 Days Qty: 30 0RF
amlodipine 10 mg Tablet
10 mg PO QPM 30 Days Qty: 30 0RF
bisacodyl 10 mg Suppository
10 mg [place] HSPRN PRN (Reason: if no BM with oral bisacodyl) 30 Days Qty: 30 0RF
bisacodyl 5 mg Tablet,Delayed Release (Dr/Ec)
10 mg PO DAILYPRN PRN (Reason: constipation) 30 Days Qty: 30 0RF
atorvastatin 40 mg Tablet
80 mg PO HS Qty: 60 1RF
clopidogrel 75 mg Tablet
75 mg PO DAILY Qty: 30 2RF
Referrals:
Frantz Zavala MD [Family Provider] -
Activity Restrictions/Additional Instructions:
Please return for any worsening symptoms.
You may return at any time if you have further concerns.
Please follow up with your doctor at the first available appointment, preferably this week.
Interventions
Interventions:
*Risk Screen - Suicide Last Done: 10/26/23 18:43
*General Assessment Last Done: 10/26/23 19:34
*Neglect/Abuse Screening Last Done: 10/26/23 18:43
ED- Fall Risk Assessment Last Done: 10/26/23 19:43
*ED COVID-19 Vaccine History Last Done: 10/26/23 19:34
ED- Pulmonary Assessment Last Done: 10/26/23 19:43
ED-Psychological Assessment Last Done: 10/26/23 19:43
ED- Neurological Assessment Last Done: 10/26/23 19:43
ED- Cardiac Assessment Last Done: 10/26/23 19:43
TN-Iuacdj-Ltpejbptou Assessment Last Done: 10/26/23 19:43
ED Swallowing Screen Last Done: 10/26/23 19:43
Discharge Date and Time
Print Language: TONGAN
== END 2023-10-27 00:12 | disposition home or self-care (01) ==
LOC: EMR 18:26
PROVIDERS: EMERGENCY PHYSICIAN Student in an Organized Health Care Education/Training Program; FAMILY PHYSICIAN Internal Medicine
DX: K59.00 Constipation, unspecified (principal); I10 Essential (primary) hypertension; Z87.891 Personal history of nicotine dependence
CPT/HCPCS: 99285; 74177; 80053; 85025; Q9967

== ENCOUNTER → 2023-12-31 14:48 | Outpatient (REF) | payer OTHER, SELFPAY ==
[2023-12-31 15:14] LABS: Urine Albumin 1+ (Neg - Trace); Urine Bilirubin Negative (Negative); Urine Character Clear (Clear); Urine Color Yellow; Urine Glucose Negative (Negative); Urine Ketone Negative (Negative); Urine Leukocyte Trace (Negative); Urine Nitrite Negative (Negative); Urine Occult Blood Negative (Negative); Urine Specific Gravity 1.015 (<1.030); Urine Urobilinogen Negative (Neg - 1+)
[2023-12-31 15:18] LABS: Urine Bacteria Few (Negative); Urine Mucus Moderate; Urine Red Blood Cell 0-2 /HPF (0-2); Urine Squamous Cell 0-2 /LPF (Few)
== END ==
LOC: REG 14:48
PROVIDERS: ATTENDING PHYSICIAN Internal Medicine
DX: R41.0 Disorientation, unspecified (principal)
CPT/HCPCS: 81003; 81015; 87086

== ENCOUNTER 2024-02-12 21:36 | Emergency (ER) | payer OTHER, SELFPAY ==
[2024-02-12 21:44] VITALS: BP 159/86
--- NOTE | 2024-02-12 22:59 | ED.GENMED ---
History of Present Illness
General
Chief Complaint: Bowel Problem
Source: patient
Exam Limitations: none
Time Seen by Provider: 02/12/24 22:24
Nursing documentation reviewed up to this point in time: agreed with
History of Present Illness
History of Present Illness:
Patient with history of dementia, presents to ED from [facility] secondary to difficulty with bowel movements, despite receiving number of bowel regimen. Patient states that he has been trying to go to the bathroom without success. Denies
abdominal pain. Denies nausea or vomiting. Denies fever or chills. Denies recent illness. Denies recent change in medications or diet. Patient unfortunately has had number of similar symptoms in the past, requiring evaluation and treatment to
ED.
Past History
Past History
ED Past Medical History: Asthma, HTN, Hypercholesterolemia, NIDDM and Other (Dementia)
ED Past Surgical History: Cholecystectomy and Orthopedic (Right shoulder surgery)
Social History
Tobacco: Former smoker
Alcohol: Occasional
Personal:
Living: with family
Employment: Retired
Review of Systems
Review of Systems
Allergies reviewed?: Yes
Unable to obtain full review of systems at this time due to: dementia
All Other Systems: Not applicable
Phy Exam
Physical Exam
Physical Exam:
Physical Exam
General: no apparent distress, not acutely ill. afebrile
Head: nc/at. eomi
Neck: supple. normal range of motion.
Abdomen: normal bowel sounds. not tender.
Neuro: alert and oriented. no focal neurological deficits
Skin: no rash
Psychiatric: well kept. interactive and cooperative
Extremities: no edema. no calf tenderness.
Course
Orders/Labs/Results
Orders:
Orders
02/12/24 22:46
Phosphate Enema [Fleet Phosphate Enema-Adult] 135 ml .ROUTE .STK-MED ONE
02/12/24 23:24
Enema- Treatment ONCE
Type: Milk of Molasses
Vital Signs
Initial and Last Documented VS:
Initial Vital Signs
Temp Pulse Resp BP Pulse Ox
98 F 98 18 159/86 95
02/12/24 21:44 02/12/24 21:44 02/12/24 21:44 02/12/24 21:44 02/12/24 21:44
Last Documented Vital Signs
Temp Pulse Resp BP Pulse Ox
98.8 F 108 22 159/86 94
02/13/24 01:03 02/13/24 01:03 02/13/24 01:03 02/12/24 21:44 02/13/24 01:03
MDM/Problems Addressed
MDM/Problems Addressed:
Rectal exam performed at bedside, with ADRIEN Johnson, at bedside. Moderate amount of soft stool removed manually. Patient subsequently given Fleet enema and milk of molasses enema with further BM. Pt will be discharged back to [place] in stable condition,
with recommendation to continue bowel regimen.
*Critical Care Note
Total Time (30-74mins, 75-104mins- exclusive of procedures): Not Applicable
ED Attending Note
-
Portions of this chart may have been created with voice recognition software.� Occasional wrong word or��sound alike� substitutions may have occurred due to the inherent limitations of voice recognition software.
Discharge Plan
Departure
Patient Disposition: [facility]/SNF
Date of Disposition: 02/12/24
Time of Disposition: 23:10
Patient with high blood pressure during this ER visit?: Yes
Discharge Problem:
Constipation
Instructions: Constipation, Adult (DC)
Prescriptions:
No Action
cyanocobalamin (vitamin B-12) 1,000 mcg/mL solution
1,000 mcg IM MONTHLY
Rx Instructions:
next dose due 09/07/23
trazodone 100 mg tablet
100 mg PO HS
tamsulosin 0.4 mg capsule
0.8 mg PO HS
lactulose 20 gram/30 mL solution
20 g PO BID 5 Days Qty: 300 0RF
glimepiride 1 mg Tablet
1 mg PO DAILY 30 Days Qty: 30 0RF
amlodipine 10 mg Tablet
10 mg PO QPM 30 Days Qty: 30 0RF
bisacodyl 10 mg Suppository
10 mg [place] HSPRN PRN (Reason: if no BM with oral bisacodyl) 30 Days Qty: 30 0RF
bisacodyl 5 mg Tablet,Delayed Release (Dr/Ec)
10 mg PO DAILYPRN PRN (Reason: constipation) 30 Days Qty: 30 0RF
atorvastatin 40 mg Tablet
80 mg PO HS Qty: 60 1RF
clopidogrel 75 mg Tablet
75 mg PO DAILY Qty: 30 2RF
Activity Restrictions/Additional Instructions:
As discussed, please follow-up with your primary care physician with any further concerns. In the meantime, strongly recommend continual use of bowel regimen.
Interventions
Interventions:
*Risk Screen - Suicide Last Done: 02/13/24 02:53
*General Assessment Last Done: 02/13/24 02:53
*Neglect/Abuse Screening Last Done: 02/13/24 02:53
*Nursing Disposition Last Done: 02/13/24 02:53
FX-Nnbsuk-Kjhadcuvzp Assessment Last Done: 02/12/24 22:42
Discharge Date and Time
Discharge Date/Time: 02/13/24 02:58
Print Language: JAMAICAN
== END 2024-02-13 02:58 ==
LOC: EMR 21:36
PROVIDERS: EMERGENCY PHYSICIAN Emergency Medicine; FAMILY PHYSICIAN Family Medicine
DX: K59.00 Constipation, unspecified (principal); F03.90 Unspecified dementia, unspecified severity, without behavioral disturbance, psychotic disturbance, mood disturbance, and anxiety; I10 Essential (primary) hypertension; E78.00 Pure hypercholesterolemia, unspecified; E11.9 Type 2 diabetes mellitus without complications; J45.909 Unspecified asthma, uncomplicated; Z87.891 Personal history of nicotine dependence; Z90.49 Acquired absence of other specified parts of digestive tract; Z91.048 Other nonmedicinal substance allergy status
CPT/HCPCS: 99283

== ENCOUNTER → 2024-06-07 11:36 | Outpatient (REF) | payer OTHER, SELFPAY ==
[2024-06-08 12:21] LABS: Urine Albumin 3+ (Neg - Trace); Urine Bilirubin Negative (Negative); Urine Character Clear (Clear); Urine Color Yellow; Urine Glucose 2+ (Negative); Urine Ketone Negative (Negative); Urine Leukocyte 2+ (Negative); Urine Nitrite Negative (Negative); Urine Occult Blood Negative (Negative); Urine Specific Gravity 1.015 (<1.030); Urine Urobilinogen Negative (Neg - 1+)
[2024-06-08 14:57] LABS: Urine Amorphous Seen
[2024-06-08 14:58] LABS: Urine Red Blood Cell 0-2 /HPF (0-2); Urine White Cell >100 /HPF (0-5)
== END ==
LOC: CLAB 11:36
PROVIDERS: ATTENDING PHYSICIAN Internal Medicine
DX: R39.9 Unspecified symptoms and signs involving the genitourinary system (principal); R41.9 Unspecified symptoms and signs involving cognitive functions and awareness
CPT/HCPCS: 81003; 81015; 87086

== ENCOUNTER → 2025-02-21 07:23 | Outpatient (REF) | payer OTHER, SELFPAY ==
[2025-02-21 08:04] LABS: Urine Character Cloudy (Clear)
[2025-02-21 08:32] LABS: Urine Squamous Cell 0-2 /LPF (Few); Urine Urothelial Cell 0-2 /LPF (FEW)
[2025-02-21 08:33] LABS: Urine White Cell >100 /HPF (0-5)
== END ==
LOC: REG 07:23
PROVIDERS: ATTENDING PHYSICIAN Internal Medicine
DX: R33.9 Retention of urine, unspecified (principal)
CPT/HCPCS: 81003; 81015; 87086

== ENCOUNTER → 2025-03-15 09:22 | Outpatient (REF) | payer OTHER, SELFPAY ==
[2025-03-15 10:28] LABS: Hematocrit 40.8 % (39.0-52.0); Hemoglobin 13.5 g/dL (13.0-18.0); Mean Corp Hgb Conc. 33.1 g/dL (33.0-37.0); Mean Corpuscular Volume 87.6 fL (80.0-94.0); Nucleated Red Blood Cells % 0 % (-); Platelet Count 257 10^3/uL (130-400); Red Cell Dist. Width 13.3 % (11.5-14.5)
[2025-03-15 10:41] LABS: ALT (SGPT) < 10 U/L (0-50); AST (SGOT) 15 U/L (17-59); Albumin 3.6 g/dl (3.5-5.0); Alkaline Phosphatase 92 U/L (38-126); Blood Urea Nitrogen 10 mg/dl (9-20); Calcium 9.2 mg/dl (8.4-10.2); Carbon Dioxide 24 mmol/L (22-30); Chloride 104 mmol/L (98-107); Glucose 110 mg/dl (70-99); HDL Cholesterol 27 mg/dl; LDL Cholesterol, Calculated 54 mg/dl; Potassium 4.4 mmol/L (3.5-5.1); Sodium 135 mmol/L (135-145); Total Protein 6.5 g/dl (6.3-8.2); Very Low Density Lipoprotein 47 mg/dl (0-30); eGFR > 60.00
== END ==
LOC: CLAB 09:22
PROVIDERS: ATTENDING PHYSICIAN Internal Medicine
DX: E11.59 Type 2 diabetes mellitus with other circulatory complications (principal); E78.5 Hyperlipidemia, unspecified; I10 Essential (primary) hypertension; F03.918 Unspecified dementia, unspecified severity, with other behavioral disturbance
CPT/HCPCS: 80053; 80061; 85025